=== PATIENT | male | born 1960 | race Two or more races ===

== ENCOUNTER 2018-10-24 22:29 | Inpatient (IN) | payer BC ==
[~2018-10-24] VITALS: Ht 177.8 cm; Wt 76.7 kg
[2018-10-24 23:01] LABS: BASO % 0 % (0-3); EOS % 0 % (0-3); HEMATOCRIT 44.3 % (39.0-53.0); HEMOGLOBIN 14.9 g/dL (13.0-17.5); LYMPH # 0.8 x10^3/uL (1.0-4.8); LYMPH % 8 % (24-48); MEAN CORPUSCULAR HEMOGLOBIN 31 pg (25-35); MEAN CORPUSCULAR HGB CONC 34 g/dL (31-37); MEAN CORPUSCULAR VOLUME 91 fL (79-100); MONO # 0.8 x10^3/uL (0.0-1.1); MONO % 8 % (0-9); NEUT # 8.5 x10^3uL (1.8-7.7); NEUT % 84 % (31-73); PLATELET COUNT 231 x10^3/uL (140-400); RED BLOOD COUNT 4.87 x10^6/uL (4.30-5.70); RED CELL DISTRIBUTION WIDTH 13.1 % (11.5-14.5); WHITE BLOOD COUNT 10.2 x10^3/uL (4.0-11.0)
--- NOTE | 2018-10-24 23:03 | PHYS DOC ---
Past Medical History Past Medical History: Diabetes-Type II Adult General Chief Complaint Chief Complaint: HEMORRHOIDS HPI HPI Patient is a 57 year old male with history of diabetes type 2 who presents to the ED today complaining of hemorrhoids. Patient states he noted the hemorrhoids on Friday which is 4 days ago. He states he was seen on Friday by the PCP at a local clinic, he states he was started on Preparation H and docusate. He states he is still experiencing pain to his rectal region. He is rating the pain as moderate worse when he sitting on his buttocks. He is denying any history of constipation. Denies any abdominal pain right now in the ED though he states at home he usually gets this abdominal pain to bilateral upper abdomen that come and go. Denies any Nausea/vomiting. 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 Denies abdominal pain, nausea, vomiting, bloody stools or diarrhea [] : Denies dysuria or hematuria [] Musculoskeletal: Denies back pain or joint pain [] Integument: Denies rash or skin lesions [] Neurologic: Denies headache, focal weakness or sensory changes [] All other systems were reviewed and found to be within normal limits, except as documented in this note. Current Medications Current Medications Current Medications Medications (Trade) Dose Ordered Sig/Do Start Time Stop Time Status Last Admin Dose Admin Dextrose (Dextrose 50%-Water Syringe) 12.5 gm PRN Q15MIN PRN 10/25/18 00:30 Famotidine (Pepcid Vial) 20 mg 1X ONCE 10/24/18 23:30 10/24/18 23:31 DC 10/24/18 23:51 20 MG Info (CONTRAST GIVEN -- Rx MONITORING) 1 each PRN DAILY PRN 10/24/18 23:30 10/26/18 23:29 Insulin Human Regular (HumuLIN R VIAL) 6 unit 1X ONCE 10/24/18 23:45 10/24/18 23:46 DC 10/25/18 00:05 6 UNIT Iohexol (Omnipaque 300 Mg/ml) 75 ml 1X ONCE 10/24/18 23:45 10/24/18 23:46 DC 10/24/18 23:36 75 ML Ketorolac Tromethamine (Toradol 30mg Vial) 30 mg 1X ONCE 10/24/18 23:30 10/24/18 23:31 DC 10/24/18 23:51 30 MG Lidocaine HCl (Xylocaine 2% Topical 5gm Tube) 1 [place] 1X ONCE 10/24/18 23:30 10/24/18 23:31 DC 10/24/18 23:50 1 [place] Morphine Sulfate (Morphine Sulfate) 4 mg PRN Q2HR PRN 10/25/18 00:30 10/26/18 00:29 Ondansetron HCl (Zofran) 4 mg PRN Q8HRS PRN 10/25/18 00:30 10/26/18 00:29 Sodium Chloride 1,000 ml @ 1,000 mls/hr 1X ONCE 10/24/18 23:45 10/25/18 00:44 DC 10/25/18 00:56 1,000 MLS/HR Allergies Allergies Allergies Coded Allergies Type Severity Reaction Last Updated Verified No Known Drug Allergies 10/24/18 No Physical Exam Physical Exam Constitutional: Well developed, well nourished, no acute distress, non-toxic appearance. [] HENT: Normocephalic, atraumatic, bilateral external ears normal, oropharynx moist, no oral exudates, nose normal. [] Eyes: PERRLA, EOMI, conjunctiva normal, no discharge. [] Neck: Normal range of motion, no tenderness, supple, no stridor. [] Cardiovascular:Heart rate regular rhythm, no murmur [] Lungs & Thorax: Bilateral breath sounds clear to auscultation [] Abdomen: Bowel sounds normal, soft, no tenderness, no masses, no pulsatile masses. [] Rectal exam-external rectum with small amount of nonthrombosed hemorrhoids. No Internal hemorrhoids noted,no internal masses. No stool noted on the lower rectal region hence no Hemoccult done. Skin: Patient appears jaundiced. Warm, dry, no erythema, no rash. [] Back: No tenderness, no CVA tenderness. [] Extremities: No tenderness, no cyanosis, no clubbing, ROM intact, no edema. [] Neurologic: Alert and oriented X 3, normal motor function, normal sensory functi on, no focal deficits noted. [] Psychologic: Affect normal, judgement normal, mood normal. [] Current Patient Data Vital Signs Vital Signs Date Time Temp Pulse Resp B/P (MAP) Pulse Ox O2 Delivery O2 Flow Rate FiO2 10/24/18 22:35 99.1 100 16 164/82 (109) 98 Room Air 99.1 Lab Values Laboratory Tests Test 10/24/18 22:50 10/25/18 00:20 White Blood Count 10.2 x10^3/uL (4.0-11.0) Red Blood Count 4.87 x10^6/uL (4.30-5.70) Hemoglobin 14.9 g/dL (13.0-17.5) Hematocrit 44.3 % (39.0-53.0) Mean Corpuscular Volume 91 fL (79-100) Mean Corpuscular Hemoglobin 31 pg (25-35) Mean Corpuscular Hemoglobin Concent 34 g/dL (31-37) Red Cell Distribution Width 13.1 % (11.5-14.5) Platelet Count 231 x10^3/uL (140-400) Neutrophils (%) (Auto) 84 % (31-73) H Lymphocytes (%) (Auto) 8 % (24-48) L Monocytes (%) (Auto) 8 % (0-9) Eosinophils (%) (Auto) 0 % (0-3) Basophils (%) (Auto) 0 % (0-3) Neutrophils # (Auto) 8.5 x10^3uL (1.8-7.7) H Lymphocytes # (Auto) 0.8 x10^3/uL (1.0-4.8) L Monocytes # (Auto) 0.8 x10^3/uL (0.0-1.1) Eosinophils # (Auto) 0.0 x10^3/uL (0.0-0.7) Basophils # (Auto) 0.0 x10^3/uL (0.0-0.2) Sodium Level 128 mmol/L (136-145) L Potassium Level 4.2 mmol/L (3.5-5.1) Chloride Level 92 mmol/L (98-107) L Carbon Dioxide Level 24 mmol/L (21-32) Anion Gap 12 (6-14) Blood Urea Nitrogen 18 mg/dL (8-26) Creatinine 0.7 mg/dL (0.7-1.3) Estimated GFR (Cockcroft-Gault) 115.8 BUN/Creatinine Ratio 26 (6-20) H Glucose Level 308 mg/dL (70-99) H Calcium Level 9.2 mg/dL (8.5-10.1) Total Bilirubin 1.6 mg/dL (0.2-1.0) H Aspartate Amino Transferase (AST) 34 U/L (15-37) Alanine Aminotransferase (ALT) 46 U/L (16-63) Alkaline Phosphatase 167 U/L (46-116) H Total Protein 7.8 g/dL (6.4-8.2) Albumin 3.3 g/dL (3.4-5.0) L Albumin/Globulin Ratio 0.7 (1.0-1.7) L Lipase 114 U/L (73-393) Urine Collection Type U cath Urine Color Yellow Urine Clarity Clear Urine pH 6.0 Urine Specific [place] >=1.030 Urine Protein Negative mg/dL (NEG-TRACE) Urine Glucose (UA) >=1000 mg/dL (NEG) Urine Ketones (Stick) 15 mg/dL (NEG) Urine Blood Negative (NEG) Urine Nitrite Negative (NEG) Urine Bilirubin Negative (NEG) Urine Urobilinogen Dipstick 1.0 mg/dL (0.2 mg/dL) Urine Leukocyte Esterase Negative (NEG) Urine RBC Occ /HPF (0-2) Urine WBC Occ /HPF (0-4) Urine Squamous Epithelial Cells Occ /LPF Urine Transitional Epithelial Cells Occ /LPF Urine Bacteria 0 /HPF (0-FEW) Urine Mucus Slight /LPF Laboratory Tests 10/24/18 22:50 Laboratory Tests 10/24/18 22:50 EKG EKG [] Radiology/Procedures Radiology/Procedures []PROCEDURE: CT ABD PELV W/ IV CONTRST ONLY CT ABD PELV W/ IV CONTRST ONLY Indication: Hemorrhoids. Exposure: One or more of the following individualized dose reduction techniques were utilized for this examination: 1. Automated exposure control 2. Adjustment of the mA and/or kV according to patient size 3. Use of iterative reconstruction technique. Technique: Intravenous contrast was given. No oral contrast per request. Lung bases are clear. Liver and spleen are unremarkable. Pancreas is difficult to delineate from adjacent unopacified bowel. But no definite peripancreatic fluid or inflammatory type changes seen. No adrenal mass. Kidneys demonstrate symmetric enhancement without hydronephrosis. There is a subcentimeter low-density lesion at the lower pole of the right kidney, too small to characterize but would most likely be a cyst. There is a gallstone in the gallbladder neck. The gallbladder is mildly distended. The aorta is mildly calcified and ectatic. No evidence of aneurysm. No significant lymph node enlargement. There are some mildly distended loops of small bowel fluid. No evidence of obstructive bowel gas pattern however. There is wall thickening of the rectum with some adjacent inflammatory type changes. Rectal wall is difficult to define. [id number] retained stool in the colon. No definite acute colitis. The appendix is not clearly seen. No significant urinary bladder wall thickening. There is no evidence of pneumoperitoneum or ascites. Degenerative changes of the spine with stenosis. No evidence of destructive bone lesion. IMPRESSION: 1. Rectal wall thickening with ill-defined margins and surrounding stranding, possibilities include proctitis, infected hemorrhoids or rectal mass. 2. Cholelithiasis with gallbladder distention. Electronically signed by: Albert Villarreal MD (10/25/2018 12:00 AM) [facility] DICTATED and SIGNED BY: ALBERT VILLARREAL MD DATE: 10/25/18 0000 Course & Med Decision Making Course & Med Decision Making Pertinent Labs and Imaging studies reviewed. (See chart for details) This is a 57-year-old male patient who presents to the ED today with hemorrhoids. Patient was seen by the PCP on Friday, started on Preparation H and docusate, symptoms persist. Physical exam small amount of external nonthrombosed hemorrhoids noted. CBC with a normal WBC, CMP with sodium of 128, glucose 308, normal anion gap, bilirubin 1.8-patient appears jaundiced. ALK 167. Vitals on arrival to the ED temperature 98.1 heart rate 100 respirations 16 blood pressure 164/82 O2 sats 98% on room air. CT of the abdomen and pelvic-was noted for rectal wall thickening with ill- defined margins and surrounding stranding, possibilities include proctitis, infected hemorrhoids or rectal mass. Cholelithiasis with gallbladder distention. 00:[address] Sanchez who will follow-up with patient in a.m. Consulted with -who accepted patient for admission Blood cultures were obtained, patient was given 2 L of normal saline in the ED and admitted with normal saline. Started on Cipro and Flagyl. Dragon Disclaimer Dragon Disclaimer This electronic medical record was generated, in whole or in part, using a voice recognition dictation system. Departure Departure Impression: Primary Impression: Hyperglycemia Additional Impressions: Hemorrhoids Cholelithiasis Hyponatremia Jaundice Disposition: ADMITTED INPATIENT Condition: STABLE Problem Qualifiers Additional Impressions: Hemorrhoids Hemorrhoid type: unspecified Qualified Codes: K64.9 - Unspecified hemorrhoids Cholelithiasis Cholelithiasis location: gallbladder Cholecystitis presence: without cholecystitis Biliary obstruction: without biliary obstruction Qualified Codes: K80.20 - Calculus of gallbladder without cholecystitis without obstruction FELICE DUMONT [employer] October 24, 2018 23:03
[2018-10-24 23:08] LABS: CALCIUM 9.2 mg/dL (8.5-10.1); CREATININE 0.7 mg/dL (0.7-1.3); GFR 115.8; POTASSIUM 4.2 mmol/L (3.5-5.1)
[2018-10-24 23:14] LABS: ALBUMIN 3.3 g/dL (3.4-5.0); ALBUMIN/GLOBULIN RATIO 0.7 (1.0-1.7); TOTAL BILIRUBIN 1.6 mg/dL (0.2-1.0); TOTAL PROTEIN 7.8 g/dL (6.4-8.2)
[2018-10-24] MEDS ORDERED: LIDOCAINE 2% TOPICAL JELLY 5GM TUBE. TP ONE (23:30)
[2018-10-24] MEDS ORDERED: KETOROLAC 30 MG/ML VIAL. IV ONE (23:30)
[2018-10-24] MEDS ORDERED: CONTRAST GIVEN. MC PRN (23:30)
[2018-10-24] MEDS ORDERED: FAMOTIDINE 20 MG/2 ML VIAL IVP ONE (23:30)
[2018-10-24] MEDS ORDERED: IV NORMAL SALINE 1000ML BAG 1,000 ML IV ONE ×2 (23:30→23:45)
[2018-10-24] MEDS ORDERED: IOHEXOL 300 MG/ML 100ML VIAL. IV ONE (23:45)
[2018-10-24] MEDS ORDERED: INSULIN REGULAR 100 UNIT/ML 3ML VIAL. IV ONE (23:45)
--- NOTE | 2018-10-25 00:03 | RAD ---
CT ABD PELV W/ IV CONTRST ONLY Indication: Hemorrhoids. Exposure: One or more of the following individualized dose reduction techniques were utilized for this examination: 1. Automated exposure control 2. Adjustment of the mA and/or kV according to patient size 3. Use of iterative reconstruction technique. Technique: Intravenous contrast was given. No oral contrast per request. Lung bases are clear. Liver and spleen are unremarkable. Pancreas is difficult to delineate from adjacent unopacified bowel. But no definite peripancreatic fluid or inflammatory type changes seen. No adrenal mass. Kidneys demonstrate symmetric enhancement without hydronephrosis. There is a subcentimeter low-density lesion at the lower pole of the right kidney, too small to characterize but would most likely be a cyst. There is a gallstone in the gallbladder neck. The gallbladder is mildly distended. The aorta is mildly calcified and ectatic. No evidence of aneurysm. No significant lymph node enlargement. There are some mildly distended loops of small bowel fluid. No evidence of obstructive bowel gas pattern however. There is wall thickening of the rectum with some adjacent inflammatory type changes. Rectal wall is difficult to define. [id number] retained stool in the colon. No definite acute colitis. The appendix is not clearly seen. No significant urinary bladder wall thickening. There is no evidence of pneumoperitoneum or ascites. Degenerative changes of the spine with stenosis. No evidence of destructive bone lesion. IMPRESSION: 1. Rectal wall thickening with ill-defined margins and surrounding stranding, possibilities include proctitis, infected hemorrhoids or rectal mass. 2. Cholelithiasis with gallbladder distention. Electronically signed by: Albert Villarreal MD (10/25/2018 12:00 AM) [facility]
[2018-10-25] MEDS ORDERED: ONDANSETRON PF 4 MG/2 ML VIAL. IV PRN ×2 (00:30→10:00)
[2018-10-25] MEDS ORDERED: DEXTROSE 50% 25 GM / 50ML DISP.SYRIN. IV PRN ×2 (00:30→10:00)
[2018-10-25 00:31] LABS: BILIRUBIN,URINE NEGATIVE (NEG); CLARITY,URINE CLEAR; COLOR,URINE YELLOW; NITRITE,URINE NEGATIVE (NEG); PROTEIN,URINE NEGATIVE (NEG-TRACE)
[2018-10-25 00:50] LABS: BACTERIA,URINE 0 /HPF (0-FEW); RBC,URINE OCC /HPF (0-2); WBC,URINE OCC /HPF (0-4)
[2018-10-25 00:51] LABS: SQUAMOUS EPITHELIAL CELL,UR OCC /LPF
[2018-10-25] MEDS ORDERED: IV NORMAL SALINE 1000ML BAG 1,000 ML IV ONE (01:00)
--- NOTE | 2018-10-25 02:00 | NUR ---
The patient, KATIE ERWIN, 57 y/o, M admitted by KENNETH CERVANTES MD, was given written information regarding hospital policies, unit procedures and contact persons. Valuables were checked and left in the room.
[2018-10-25] MEDS: CIPROFLOXACIN 400MG PREMIX 200 ML IV SCH ×3 (02:02→22:07)
[2018-10-25 02:21] VITALS: BP 115/69
[2018-10-25] MEDS: MORPHINE SULFATE 4 MG/ML VIAL. IV PRN ×4 (06:15→15:24)
[2018-10-25 07:00] VITALS: BP 123/72
[2018-10-25] MEDS ORDERED: INSULIN LISPRO 300 UNITS/3 ML INSULN.PEN. SQ SCH (08:00)
[2018-10-25] MEDS ORDERED: TRAM50TA PO (08:22)
[2018-10-25] MEDS ORDERED: HYDR25SU18 RC (08:22)
[2018-10-25] MEDS ORDERED: AMOX1TAB61 PO (08:22)
[2018-10-25] MEDS ORDERED: LIDO30CR6 TOP (08:22)
[2018-10-25] MEDS ORDERED: METF500T16 PO (08:22)
[2018-10-25] MEDS ORDERED: pericolace PO (08:22)
--- NOTE | 2018-10-25 09:14 | PDOC2 ---
CONSULT Date of Consult Date of Consult DATE: 10/25/18 TIME: 09:09 Reason for Consult Reason for Consult: Rectal pain Referring Physician Referring Physician: Salas Identification/Chief Complaint Chief Complaint Rectal pain due to hemorrhoids Source Source: Patient History of Present Illness Reason for Visit: Patient is a 57-year-old male who 3 days ago began experiencing rectal pain he assumed it was from his hemorrhoids he's had previous episodes of rectal pain over the last couple of years never had any surgery for his hemorrhoids. Denies ever having had a colonoscopy denies any bleeding with these hemorrhoids. Denies any abdominal pain no nausea or vomiting. Patient states the pain is worse after bowel movement he has never noticed the hemorrhoids outside of the anus. Past Medical History Cardiovascular: No pertinent hx Pulmonary: No pertinent hx GI: No pertinent hx Heme/Onc: No pertinent hx Hepatobiliary: No pertinent hx Psych: No pertinent hx Rheumatologic: No pertinent hx Infectious disease: No pertinent hx ENT: No pertinent hx Renal/: No pertinent hx Endocrine: Diabetes Dermatology: No pertinent hx Past Surgical History Past Surgical History: No pertinent history Family History Family History: No Significant Social History No ALCOHOL: rare Drugs: None Lives: with Family Current Problem List Problem List Problems Medical Problems: (1) Cholelithiasis Status: Acute (2) Jaundice Status: Acute Current Medications Current Medications Current Medications Lidocaine HCl (Xylocaine 2% Topical 5gm Tube) 1 kady 1X ONCE TP Last administered on 10/24/18at 23:50; Start 10/24/18 at 23:30; Stop 10/24/18 at 23:31; Status DC Sodium Chloride 1,000 ml @ 1,000 mls/hr 1X ONCE IV Last administered on 10/24/18at 23:54; Start 10/24/18 at 23:30; Stop 10/25/18 at 00:29; Status DC Ketorolac Tromethamine (Toradol 30mg Vial) 30 mg 1X ONCE IV Last administered on 10/24/18at 23:51; Start 10/24/18 at 23:30; Stop 10/24/18 at 23:31; Status DC Famotidine (Pepcid Vial) 20 mg 1X ONCE IVP Last administered on 10/24/18at 23:51; Start 10/24/18 at 23:30; Stop 10/24/18 at 23:31; Status DC Iohexol (Omnipaque 300 Mg/ml) 75 ml 1X ONCE IV Last administered on 10/24/18at 23:36; Start 10/24/18 at 23:45; Stop 10/24/18 at 23:46; Status DC Info (CONTRAST GIVEN -- Rx MONITORING) 1 each PRN DAILY PRN MC SEE COMMENTS; Start 10/24/18 at 23:30; Stop 10/26/18 at 23:29 Sodium Chloride 1,000 ml @ 1,000 mls/hr 1X ONCE IV Last administered on 10/25/18at 00:56; Start 10/24/18 at 23:45; Stop 10/25/18 at 00:44; Status DC Insulin Human Regular (HumuLIN R VIAL) 6 unit 1X ONCE IV Last administered on 10/25/18at 00:05; Start 10/24/18 at 23:45; Stop 10/24/18 at 23:46; Status DC Ondansetron HCl (Zofran) 4 mg PRN Q8HRS PRN IV NAUSEA/VOMITING 1ST CHOICE; Start 10/25/18 at 00:30; Stop 10/26/18 at 00:29 Morphine Sulfate (Morphine Sulfate) 4 mg PRN Q2HR PRN IV SEVERE PAIN Last administered on 10/25/18at 08:24; Start 10/25/18 at 00:30; Stop 10/26/18 at 00:29 Insulin Human Lispro (HumaLOG) 0-5 UNITS TIDWMEALS SQ ; Start 10/25/18 at 08:00 Dextrose (Dextrose 50%-Water Syringe) 12.5 gm PRN Q15MIN PRN IV SEE COMMENTS; Start 10/25/18 at 00:30 Sodium Chloride 1,000 ml @ 125 mls/hr 1X ONCE IV Last administered on 10/25/18at 01:55; Start 10/25/18 at 01:00; Stop 10/25/18 at 08:59; Status DC Ciprofloxacin/ Dextrose 200 ml @ 200 mls/hr BID IV Last administered on 10/25/18at 02:02; Start 10/25/18 at 01:00 Metronidazole 100 ml @ 100 mls/hr Q8HRS IV Last administered on 10/25/18at 06:15; Start 10/25/18 at 06:00 Active Scripts Active Reported Anusol-Hc (Hydrocortisone Acetate) 25 Mg Supp.rect 1 Supp RC BID Augmentin 875-125 Tablet (Amoxicillin/Potassium Clav) 1 Each Tablet 1 Tab PO BID Metformin Hcl 500 Mg Tablet 500 Mg PO BIDWMEALS Tramadol Hcl 50 Mg Tablet 50 Mg PO PRN Q12HR PRN Recticare (Lidocaine) 30 Gm Cream..g. 1 Kady TOP QIDPRN PRN [pericolace] 2 Tab PO HS Allergies Allergies: Coded Allergies: No Known Drug Allergies (Unverified , 10/24/18) ROS Gastrointestinal: Yes Other (rectal pain) Physical Exam General: Alert, Oriented X3, Cooperative, mild distress HEENT: Atraumatic, PERRLA, EOMI Lungs: Clear to auscultation, Normal air movement Heart: Regular rate, No murmurs Abdomen: Normal bowel sounds, Soft, No tenderness, Other (external exam shows no protruding hemorrhoids no inflammation no erythema [place] taking of the mucosa just beyond the anal verge questionable mass) Extremities: No edema Skin: No significant lesion Vitals VITALS Vital Signs Date Time Temp Pulse Resp B/P (MAP) Pulse Ox O2 Delivery O2 Flow Rate FiO2 10/25/18 08:24 20 97 Room Air 10/25/18 07:00 99.1 80 123/72 (89) 99.1 Labs Labs Laboratory Tests Test 10/24/18 22:50 10/25/18 00:20 10/25/18 01:05 10/25/18 01:26 White Blood Count 10.2 x10^3/uL (4.0-11.0) Red Blood Count 4.87 x10^6/uL (4.30-5.70) Hemoglobin 14.9 g/dL (13.0-17.5) Hematocrit 44.3 % (39.0-53.0) Mean Corpuscular Volume 91 fL (79-100) Mean Corpuscular Hemoglobin 31 pg (25-35) Mean Corpuscular Hemoglobin Concent 34 g/dL (31-37) Red Cell Distribution Width 13.1 % (11.5-14.5) Platelet Count 231 x10^3/uL (140-400) Neutrophils (%) (Auto) 84 % (31-73) Lymphocytes (%) (Auto) 8 % (24-48) Monocytes (%) (Auto) 8 % (0-9) Eosinophils (%) (Auto) 0 % (0-3) Basophils (%) (Auto) 0 % (0-3) Neutrophils # (Auto) 8.5 x10^3uL (1.8-7.7) Lymphocytes # (Auto) 0.8 x10^3/uL (1.0-4.8) Monocytes # (Auto) 0.8 x10^3/uL (0.0-1.1) Eosinophils # (Auto) 0.0 x10^3/uL (0.0-0.7) Basophils # (Auto) 0.0 x10^3/uL (0.0-0.2) Sodium Level 128 mmol/L (136-145) Potassium Level 4.2 mmol/L (3.5-5.1) Chloride Level 92 mmol/L (98-107) Carbon Dioxide Level 24 mmol/L (21-32) Anion Gap 12 (6-14) Blood Urea Nitrogen 18 mg/dL (8-26) Creatinine 0.7 mg/dL (0.7-1.3) Estimated GFR (Cockcroft-Gault) 115.8 BUN/Creatinine Ratio 26 (6-20) Glucose Level 308 mg/dL (70-99) Calcium Level 9.2 mg/dL (8.5-10.1) Total Bilirubin 1.6 mg/dL (0.2-1.0) Aspartate Amino Transf (AST/SGOT) 34 U/L (15-37) Alanine Aminotransferase (ALT/SGPT) 46 U/L (16-63) Alkaline Phosphatase 167 U/L (46-116) Total Protein 7.8 g/dL (6.4-8.2) Albumin 3.3 g/dL (3.4-5.0) Albumin/Globulin Ratio 0.7 (1.0-1.7) Lipase 114 U/L (73-393) Urine Collection Type U cath Urine Color Yellow Urine Clarity Clear Urine pH 6.0 Urine Specific [place] >=1.030 Urine Protein Negative mg/dL (NEG-TRACE) Urine Glucose (UA) >=1000 mg/dL (NEG) Urine Ketones (Stick) 15 mg/dL (NEG) Urine Blood Negative (NEG) Urine Nitrite Negative (NEG) Urine Bilirubin Negative (NEG) Urine Urobilinogen Dipstick 1.0 mg/dL (0.2 mg/dL) Urine Leukocyte Esterase Negative (NEG) Urine RBC Occ /HPF (0-2) Urine WBC Occ /HPF (0-4) Urine Squamous Epithelial Cells Occ /LPF Urine Transitional Epithelial Cells Occ /LPF Urine Bacteria 0 /HPF (0-FEW) Urine Mucus Slight /LPF Lactic Acid Level 1.7 mmol/L (0.4-2.0) Glucose (Fingerstick) 212 mg/dL (70-99) Test 10/25/18 07:49 Glucose (Fingerstick) 205 mg/dL (70-99) Laboratory Tests Test 10/24/18 22:50 10/25/18 00:20 10/25/18 01:05 10/25/18 01:26 White Blood Count 10.2 x10^3/uL (4.0-11.0) Red Blood Count 4.87 x10^6/uL (4.30-5.70) Hemoglobin 14.9 g/dL (13.0-17.5) Hematocrit 44.3 % (39.0-53.0) Mean Corpuscular Volume 91 fL (79-100) Mean Corpuscular Hemoglobin 31 pg (25-35) Mean Corpuscular Hemoglobin Concent 34 g/dL (31-37) Red Cell Distribution Width 13.1 % (11.5-14.5) Platelet Count 231 x10^3/uL (140-400) Neutrophils (%) (Auto) 84 % (31-73) Lymphocytes (%) (Auto) 8 % (24-48) Monocytes (%) (Auto) 8 % (0-9) Eosinophils (%) (Auto) 0 % (0-3) Basophils (%) (Auto) 0 % (0-3) Neutrophils # (Auto) 8.5 x10^3uL (1.8-7.7) Lymphocytes # (Auto) 0.8 x10^3/uL (1.0-4.8) Monocytes # (Auto) 0.8 x10^3/uL (0.0-1.1) Eosinophils # (Auto) 0.0 x10^3/uL (0.0-0.7) Basophils # (Auto) 0.0 x10^3/uL (0.0-0.2) Sodium Level 128 mmol/L (136-145) Potassium Level 4.2 mmol/L (3.5-5.1) Chloride Level 92 mmol/L (98-107) Carbon Dioxide Level 24 mmol/L (21-32) Anion Gap 12 (6-14) Blood Urea Nitrogen 18 mg/dL (8-26) Creatinine 0.7 mg/dL (0.7-1.3) Estimated GFR (Cockcroft-Gault) 115.8 BUN/Creatinine Ratio 26 (6-20) Glucose Level 308 mg/dL (70-99) Calcium Level 9.2 mg/dL (8.5-10.1) Total Bilirubin 1.6 mg/dL (0.2-1.0) Aspartate Amino Transf (AST/SGOT) 34 U/L (15-37) Alanine Aminotransferase (ALT/SGPT) 46 U/L (16-63) Alkaline Phosphatase 167 U/L (46-116) Total Protein 7.8 g/dL (6.4-8.2) Albumin 3.3 g/dL (3.4-5.0) Albumin/Globulin Ratio 0.7 (1.0-1.7) Lipase 114 U/L (73-393) Urine Collection Type U cath Urine Color Yellow Urine Clarity Clear Urine pH 6.0 Urine Specific [place] >=1.030 Urine Protein Negative mg/dL (NEG-TRACE) Urine Glucose (UA) >=1000 mg/dL (NEG) Urine Ketones (Stick) 15 mg/dL (NEG) Urine Blood Negative (NEG) Urine Nitrite Negative (NEG) Urine Bilirubin Negative (NEG) Urine Urobilinogen Dipstick 1.0 mg/dL (0.2 mg/dL) Urine Leukocyte Esterase Negative (NEG) Urine RBC Occ /HPF (0-2) Urine WBC Occ /HPF (0-4) Urine Squamous Epithelial Cells Occ /LPF Urine Transitional Epithelial Cells Occ /LPF Urine Bacteria 0 /HPF (0-FEW) Urine Mucus Slight /LPF Lactic Acid Level 1.7 mmol/L (0.4-2.0) Glucose (Fingerstick) 212 mg/dL (70-99) Test 10/25/18 07:49 Glucose (Fingerstick) 205 mg/dL (70-99) Images Images Reviewed CT findings showing fat stranding and rectal wall thickening concerning for neoplasia versus proctitis also had a large gallstone within the gallbladder with no evidence of pericholecystic fluid or inflammation Assessment/Plan Assessment/Plan Rectal pain with abnormal CT scan findings recommend GI consult for colonoscopy Cholelithiasis asymptomatic but with patient's diabetes would recommend having cholecystectomy electively MIGDALIA VALDIVIA MD October 25, 2018 09:14
[2018-10-25] MEDS ORDERED: traMADol 50 MG TABLET PO PRN (10:00)
[2018-10-25] MEDS ORDERED: PHENYLEPHRINE SUPP.RECT. PR PRN (10:00)
[2018-10-25] MEDS: HYDROCORTISONE ACETATE 25 MG SUPP.RECT PR SCH ×2 (10:16→22:06)
[2018-10-25 11:00] VITALS: BP 151/81
--- NOTE | 2018-10-25 11:08 | PDOC2 ---
CONSULT Date of Consult Date of Consult DATE: 10/25/18 TIME: 10:59 Identification/Chief Complaint Chief Complaint Rectal pain, abnormal CT scan History of Present Illness Reason for Visit: This is a 57 year old gentleman who describes a greater than one-year history of intermittent rectal pain. He describes the pain as sharp and worse with bowel movements but not associated with bleeding. He denies any external hemorrhoids or external lesions appreciated and thinks this is in his rectum. He has been advised to have this evaluated but has not followed through until the present time. On admission his CT reveals thickening in the rectum that might be consistent with either large hemorrhoids, proctitis or even neoplasia. He has never had a colonoscopy. He also describes an isolated episode of lower chest and epigastric pain at few weeks ago that resolved spontaneously. He denies chronic dyspepsia or heartburn symptoms. He was recently diagnosed with diabetes and started on metformin within the last week but prior to that had not been aware of any chronic medical problems. Denies nausea, vomiting, heartburn, dysphagia, melena or hematochezia. Past Medical History Cardiovascular: No pertinent hx Pulmonary: No pertinent hx GI: No pertinent hx Heme/Onc: No pertinent hx Hepatobiliary: No pertinent hx Psych: No pertinent hx Rheumatologic: No pertinent hx Infectious disease: No pertinent hx ENT: No pertinent hx Renal/: No pertinent hx Endocrine: Diabetes Dermatology: No pertinent hx Past Surgical History Past Surgical History: No pertinent history Family History Family History: No Significant Social History No ALCOHOL: rare Drugs: None Lives: with Family Current Problem List Problem List Problems Medical Problems: (1) Cholelithiasis Status: Acute (2) Jaundice Status: Acute Current Medications Current Medications Current Medications Lidocaine HCl (Xylocaine 2% Topical 5gm Tube) 1 kady 1X ONCE TP Last administered on 10/24/18at 23:50; Start 10/24/18 at 23:30; Stop 10/24/18 at 23:31; Status DC Sodium Chloride 1,000 ml @ 1,000 mls/hr 1X ONCE IV Last administered on 10/24/18at 23:54; Start 10/24/18 at 23:30; Stop 10/25/18 at 00:29; Status DC Ketorolac Tromethamine (Toradol 30mg Vial) 30 mg 1X ONCE IV Last administered on 10/24/18at 23:51; Start 10/24/18 at 23:30; Stop 10/24/18 at 23:31; Status DC Famotidine (Pepcid Vial) 20 mg 1X ONCE IVP Last administered on 10/24/18at 23:51; Start 10/24/18 at 23:30; Stop 10/24/18 at 23:31; Status DC Iohexol (Omnipaque 300 Mg/ml) 75 ml 1X ONCE IV Last administered on 10/24/18at 23:36; Start 10/24/18 at 23:45; Stop 10/24/18 at 23:46; Status DC Info (CONTRAST GIVEN -- Rx MONITORING) 1 each PRN DAILY PRN MC SEE COMMENTS; Start 10/24/18 at 23:30; Stop 10/26/18 at 23:29 Sodium Chloride 1,000 ml @ 1,000 mls/hr 1X ONCE IV Last administered on 10/25/18at 00:56; Start 10/24/18 at 23:45; Stop 10/25/18 at 00:44; Status DC Insulin Human Regular (HumuLIN R VIAL) 6 unit 1X ONCE IV Last administered on 10/25/18at 00:05; Start 10/24/18 at 23:45; Stop 10/24/18 at 23:46; Status DC Ondansetron HCl (Zofran) 4 mg PRN Q8HRS PRN IV NAUSEA/VOMITING 1ST CHOICE; Start 10/25/18 at 00:30; Stop 10/25/18 at 09:54; Status DC Morphine Sulfate (Morphine Sulfate) 4 mg PRN Q2HR PRN IV SEVERE PAIN Last administered on 10/25/18at 08:24; Start 10/25/18 at 00:30; Stop 10/26/18 at 00:29 Insulin Human Lispro (HumaLOG) 0-5 UNITS TIDWMEALS SQ ; Start 10/25/18 at 08:00; Stop 10/25/18 at 09:54; Status DC Dextrose (Dextrose 50%-Water Syringe) 12.5 gm PRN Q15MIN PRN IV SEE COMMENTS; Start 10/25/18 at 00:30; Status Cancel Sodium Chloride 1,000 ml @ 125 mls/hr 1X ONCE IV Last administered on 10/25/18at 01:55; Start 10/25/18 at 01:00; Stop 10/25/18 at 08:59; Status DC Ciprofloxacin/ Dextrose 200 ml @ 200 mls/hr BID IV Last administered on 10/25/18at 10:16; Start 10/25/18 at 01:00 Metronidazole 100 ml @ 100 mls/hr Q8HRS IV Last administered on 10/25/18at 06:15; Start 10/25/18 at 06:00 Ondansetron HCl (Zofran) 4 mg PRN Q6HRS PRN IV NAUSEA/VOMITING 1ST CHOICE; Start 10/25/18 at 10:00 Acetaminophen (Tylenol) 500 mg PRN Q6HRS PRN PO MILD PAIN / TEMP; Start 10/25/18 at 10:00 Acetaminophen/ Codeine Phosphate (Tylenol #3) 1 tab PRN Q6HRS PRN PO MODERATE PAIN; Start 10/25/18 at 10:00 Phenylephrine HCl (Hemorrhoidal) 1 supp PRN Q12HR PRN [place] RECTAL PAIN; Start 10/25/18 at 10:00 Insulin Human Lispro (HumaLOG) 0-9 UNITS TIDWMEALS SQ ; Start 10/25/18 at 12:00 Dextrose (Dextrose 50%-Water Syringe) 12.5 gm PRN Q15MIN PRN IV SEE COMMENTS; Start 10/25/18 at 10:00 Tramadol HCl (Ultram) 50 mg PRN Q12HR PRN PO MODERATE PAIN, 1st CHOICE; Start 10/25/18 at 10:00 Hydrocortisone Acetate (Anucort-Hc) 25 mg BID CA Last administered on 10/25/18at 10:16; Start 10/25/18 at 10:30 Lidocaine HCl (Xylocaine 2% Topical 30gm Tube) 1 kady PRN QID PRN TP RECTAL PAIN; Start 10/25/18 at 10:30 Metformin HCl (Glucophage) 500 mg BIDWMEALS PO ; Start 10/27/18 at 08:00 Senna/Docusate Sodium (Senna Plus) 2 tab QHS PO ; Start 10/25/18 at 21:00 Ringer's Solution 1,000 ml @ 50 mls/hr Q20H IV ; Start 10/26/18 at 07:00; Stop 10/26/18 at 18:59 Active Scripts Active Reported Anusol-Hc (Hydrocortisone Acetate) 25 Mg Supp.rect 1 Supp RC BID Augmentin 875-125 Tablet (Amoxicillin/Potassium Clav) 1 Each Tablet 1 Tab PO BID Metformin Hcl 500 Mg Tablet 500 Mg PO BIDWMEALS Tramadol Hcl 50 Mg Tablet 50 Mg PO PRN Q12HR PRN Recticare (Lidocaine) 30 Gm Cream..g. 1 Kady TOP QIDPRN PRN [pericolace] 2 Tab PO HS Allergies Allergies: Coded Allergies: No Known Drug Allergies (Unverified , 10/24/18) Physical Exam General: Alert, Oriented X3, Cooperative HEENT: PERRLA Lungs: Clear to auscultation Heart: Regular rate, Normal S1, Normal S2 Abdomen: Normal bowel sounds, Soft, No tenderness, No hepatosplenomegaly, No masses Extremities: No clubbing, No cyanosis Skin: No rashes Neuro: Normal speech, Strength at 5/5 X4 ext Psych/Mental Status: Mental status NL Vitals VITALS Vital Signs Date Time Temp Pulse Resp B/P (MAP) Pulse Ox O2 Delivery O2 Flow Rate FiO2 10/25/18 08:54 97 Room Air 10/25/18 08:24 20 10/25/18 07:00 99.1 80 123/72 (89) 99.1 Labs Labs Laboratory Tests Test 10/24/18 22:50 10/25/18 00:20 10/25/18 01:05 10/25/18 01:26 White Blood Count 10.2 x10^3/uL (4.0-11.0) Red Blood Count 4.87 x10^6/uL (4.30-5.70) Hemoglobin 14.9 g/dL (13.0-17.5) Hematocrit 44.3 % (39.0-53.0) Mean Corpuscular Volume 91 fL (79-100) Mean Corpuscular Hemoglobin 31 pg (25-35) Mean Corpuscular Hemoglobin Concent 34 g/dL (31-37) Red Cell Distribution Width 13.1 % (11.5-14.5) Platelet Count 231 x10^3/uL (140-400) Neutrophils (%) (Auto) 84 % (31-73) Lymphocytes (%) (Auto) 8 % (24-48) Monocytes (%) (Auto) 8 % (0-9) Eosinophils (%) (Auto) 0 % (0-3) Basophils (%) (Auto) 0 % (0-3) Neutrophils # (Auto) 8.5 x10^3uL (1.8-7.7) Lymphocytes # (Auto) 0.8 x10^3/uL (1.0-4.8) Monocytes # (Auto) 0.8 x10^3/uL (0.0-1.1) Eosinophils # (Auto) 0.0 x10^3/uL (0.0-0.7) Basophils # (Auto) 0.0 x10^3/uL (0.0-0.2) Sodium Level 128 mmol/L (136-145) Potassium Level 4.2 mmol/L (3.5-5.1) Chloride Level 92 mmol/L (98-107) Carbon Dioxide Level 24 mmol/L (21-32) Anion Gap 12 (6-14) Blood Urea Nitrogen 18 mg/dL (8-26) Creatinine 0.7 mg/dL (0.7-1.3) Estimated GFR (Cockcroft-Gault) 115.8 BUN/Creatinine Ratio 26 (6-20) Glucose Level 308 mg/dL (70-99) Calcium Level 9.2 mg/dL (8.5-10.1) Total Bilirubin 1.6 mg/dL (0.2-1.0) Aspartate Amino Transf (AST/SGOT) 34 U/L (15-37) Alanine Aminotransferase (ALT/SGPT) 46 U/L (16-63) Alkaline Phosphatase 167 U/L (46-116) Total Protein 7.8 g/dL (6.4-8.2) Albumin 3.3 g/dL (3.4-5.0) Albumin/Globulin Ratio 0.7 (1.0-1.7) Lipase 114 U/L (73-393) Urine Collection Type U cath Urine Color Yellow Urine Clarity Clear Urine pH 6.0 Urine Specific [place] >=1.030 Urine Protein Negative mg/dL (NEG-TRACE) Urine Glucose (UA) >=1000 mg/dL (NEG) Urine Ketones (Stick) 15 mg/dL (NEG) Urine Blood Negative (NEG) Urine Nitrite Negative (NEG) Urine Bilirubin Negative (NEG) Urine Urobilinogen Dipstick 1.0 mg/dL (0.2 mg/dL) Urine Leukocyte Esterase Negative (NEG) Urine RBC Occ /HPF (0-2) Urine WBC Occ /HPF (0-4) Urine Squamous Epithelial Cells Occ /LPF Urine Transitional Epithelial Cells Occ /LPF Urine Bacteria 0 /HPF (0-FEW) Urine Mucus Slight /LPF Lactic Acid Level 1.7 mmol/L (0.4-2.0) Glucose (Fingerstick) 212 mg/dL (70-99) Test 10/25/18 07:49 Glucose (Fingerstick) 205 mg/dL (70-99) Laboratory Tests Test 10/24/18 22:50 10/25/18 00:20 10/25/18 01:05 10/25/18 01:26 White Blood Count 10.2 x10^3/uL (4.0-11.0) Red Blood Count 4.87 x10^6/uL (4.30-5.70) Hemoglobin 14.9 g/dL (13.0-17.5) Hematocrit 44.3 % (39.0-53.0) Mean Corpuscular Volume 91 fL (79-100) Mean Corpuscular Hemoglobin 31 pg (25-35) Mean Corpuscular Hemoglobin Concent 34 g/dL (31-37) Red Cell Distribution Width 13.1 % (11.5-14.5) Platelet Count 231 x10^3/uL (140-400) Neutrophils (%) (Auto) 84 % (31-73) Lymphocytes (%) (Auto) 8 % (24-48) Monocytes (%) (Auto) 8 % (0-9) Eosinophils (%) (Auto) 0 % (0-3) Basophils (%) (Auto) 0 % (0-3) Neutrophils # (Auto) 8.5 x10^3uL (1.8-7.7) Lymphocytes # (Auto) 0.8 x10^3/uL (1.0-4.8) Monocytes # (Auto) 0.8 x10^3/uL (0.0-1.1) Eosinophils # (Auto) 0.0 x10^3/uL (0.0-0.7) Basophils # (Auto) 0.0 x10^3/uL (0.0-0.2) Sodium Level 128 mmol/L (136-145) Potassium Level 4.2 mmol/L (3.5-5.1) Chloride Level 92 mmol/L (98-107) Carbon Dioxide Level 24 mmol/L (21-32) Anion Gap 12 (6-14) Blood Urea Nitrogen 18 mg/dL (8-26) Creatinine 0.7 mg/dL (0.7-1.3) Estimated GFR (Cockcroft-Gault) 115.8 BUN/Creatinine Ratio 26 (6-20) Glucose Level 308 mg/dL (70-99) Calcium Level 9.2 mg/dL (8.5-10.1) Total Bilirubin 1.6 mg/dL (0.2-1.0) Aspartate Amino Transf (AST/SGOT) 34 U/L (15-37) Alanine Aminotransferase (ALT/SGPT) 46 U/L (16-63) Alkaline Phosphatase 167 U/L (46-116) Total Protein 7.8 g/dL (6.4-8.2) Albumin 3.3 g/dL (3.4-5.0) Albumin/Globulin Ratio 0.7 (1.0-1.7) Lipase 114 U/L (73-393) Urine Collection Type U cath Urine Color Yellow Urine Clarity Clear Urine pH 6.0 Urine Specific [place] >=1.030 Urine Protein Negative mg/dL (NEG-TRACE) Urine Glucose (UA) >=1000 mg/dL (NEG) Urine Ketones (Stick) 15 mg/dL (NEG) Urine Blood Negative (NEG) Urine Nitrite Negative (NEG) Urine Bilirubin Negative (NEG) Urine Urobilinogen Dipstick 1.0 mg/dL (0.2 mg/dL) Urine Leukocyte Esterase Negative (NEG) Urine RBC Occ /HPF (0-2) Urine WBC Occ /HPF (0-4) Urine Squamous Epithelial Cells Occ /LPF Urine Transitional Epithelial Cells Occ /LPF Urine Bacteria 0 /HPF (0-FEW) Urine Mucus Slight /LPF Lactic Acid Level 1.7 mmol/L (0.4-2.0) Glucose (Fingerstick) 212 mg/dL (70-99) Test 10/25/18 07:49 Glucose (Fingerstick) 205 mg/dL (70-99) Images Images CT IMPRESSION: 1. Rectal wall thickening with ill-defined margins and surrounding stranding, possibilities include proctitis, infected hemorrhoids or rectal mass. 2. Cholelithiasis with gallbladder distention. Assessment/Plan Assessment/Plan Rectal pain with abnormal CT suggesting inflammation. The chronic nature of his symptoms speaks against infection but could represent occult neoplasia, proctitis or large hemorrhoids. Since he has not had previous colonoscopy it would be appropriate to proceed with this evaluation prior to treatment recommendations. Cholelithiasis. He has no symptoms of cholecystitis presently although he did have an isolated episode of epigastric pain a few weeks ago. He has diabetic with a new diagnosis and eventually should have his gallbladder removed electively. New diagnosis of diabetes. Plan: Proceed with bowel prep and colonoscopy in the morning Monitor labs and clinical progress MINESH JUAREZ MD October 25, 2018 11:08
[2018-10-25] MEDS ORDERED: BISACODYL 5 MG TABLET.DR. PO ONE (11:15)
[2018-10-25] MEDS: INSULIN LISPRO 300 UNITS/3 ML INSULN.PEN. SQ SCH ×2 (11:54→17:13)
--- NOTE | 2018-10-25 11:56 | PDOC1 ---
History and Physical Date of Admission Date of Admission DATE: 10/25/18 TIME: 11:52 Identification/Chief Complaint Chief Complaint rectal pain Source Source: Caregiver, Chart review, Patient History of Present Illness History of Present Illness 57-year-old male, daughter translates for me, rectal pain and palpable rectal hemorrhoids in that area for quite some time now. Previously constipated, now diarrhea. GS was consulted. GS recommends GI maybe a colonoscopy and that is the plan right now. Colonoscopy 8 AM Friday. Patient is having a bowel prep. NO known cardiac or pulmo hx but DM and rather poor/fair control. Patient is a diabetic with high blood sugars but unknown A1c. Never on insulin just on OHA. Some hyponatremia 128, never smoker, ketonuria but no glucosuria. Admitted for rectal pain, colonoscopy, and hyperglycemia, uncontrolled Past Medical History Cardiovascular: No pertinent hx Pulmonary: No pertinent hx GI: No pertinent hx Heme/Onc: No pertinent hx Hepatobiliary: No pertinent hx Psych: No pertinent hx Rheumatologic: No pertinent hx Infectious disease: No pertinent hx ENT: No pertinent hx Renal/: No pertinent hx Endocrine: Diabetes Dermatology: No pertinent hx Past Surgical History Past Surgical History: No pertinent history Family History Family History: No Significant Social History Smoke: No ALCOHOL: rare Drugs: None Current Problem List Problem List Problems Medical Problems: (1) Cholelithiasis Status: Acute (2) Jaundice Status: Acute Current Medications Current Medications Current Medications Lidocaine HCl (Xylocaine 2% Topical 5gm Tube) 1 kady 1X ONCE TP Last administered on 10/24/18at 23:50; Start 10/24/18 at 23:30; Stop 10/24/18 at 23:31; Status DC Sodium Chloride 1,000 ml @ 1,000 mls/hr 1X ONCE IV Last administered on 10/24/18at 23:54; Start 10/24/18 at 23:30; Stop 10/25/18 at 00:29; Status DC Ketorolac Tromethamine (Toradol 30mg Vial) 30 mg 1X ONCE IV Last administered on 10/24/18at 23:51; Start 10/24/18 at 23:30; Stop 10/24/18 at 23:31; Status DC Famotidine (Pepcid Vial) 20 mg 1X ONCE IVP Last administered on 10/24/18at 23:51; Start 10/24/18 at 23:30; Stop 10/24/18 at 23:31; Status DC Iohexol (Omnipaque 300 Mg/ml) 75 ml 1X ONCE IV Last administered on 10/24/18at 23:36; Start 10/24/18 at 23:45; Stop 10/24/18 at 23:46; Status DC Info (CONTRAST GIVEN -- Rx MONITORING) 1 each PRN DAILY PRN MC SEE COMMENTS; Start 10/24/18 at 23:30; Stop 10/26/18 at 23:29 Sodium Chloride 1,000 ml @ 1,000 mls/hr 1X ONCE IV Last administered on 10/25/18at 00:56; Start 10/24/18 at 23:45; Stop 10/25/18 at 00:44; Status DC Insulin Human Regular (HumuLIN R VIAL) 6 unit 1X ONCE IV Last administered on 10/25/18at 00:05; Start 10/24/18 at 23:45; Stop 10/24/18 at 23:46; Status DC Ondansetron HCl (Zofran) 4 mg PRN Q8HRS PRN IV NAUSEA/VOMITING 1ST CHOICE; Start 10/25/18 at 00:30; Stop 10/25/18 at 09:54; Status DC Morphine Sulfate (Morphine Sulfate) 4 mg PRN Q2HR PRN IV SEVERE PAIN Last administered on 10/25/18at 11:45; Start 10/25/18 at 00:30; Stop 10/26/18 at 00:29 Insulin Human Lispro (HumaLOG) 0-5 UNITS TIDWMEALS SQ ; Start 10/25/18 at 08:00; Stop 10/25/18 at 09:54; Status DC Dextrose (Dextrose 50%-Water Syringe) 12.5 gm PRN Q15MIN PRN IV SEE COMMENTS; Start 10/25/18 at 00:30; Status Cancel Sodium Chloride 1,000 ml @ 125 mls/hr 1X ONCE IV Last administered on 10/25/18at 01:55; Start 10/25/18 at 01:00; Stop 10/25/18 at 08:59; Status DC Ciprofloxacin/ Dextrose 200 ml @ 200 mls/hr BID IV Last administered on 10/25/18at 10:16; Start 10/25/18 at 01:00 Metronidazole 100 ml @ 100 mls/hr Q8HRS IV Last administered on 10/25/18at 06:15; Start 10/25/18 at 06:00 Ondansetron HCl (Zofran) 4 mg PRN Q6HRS PRN IV NAUSEA/VOMITING 1ST CHOICE; Start 10/25/18 at 10:00 Acetaminophen (Tylenol) 500 mg PRN Q6HRS PRN PO MILD PAIN / TEMP; Start 10/25/18 at 10:00 Acetaminophen/ Codeine Phosphate (Tylenol #3) 1 tab PRN Q6HRS PRN PO MODERATE PAIN; Start 10/25/18 at 10:00 Phenylephrine HCl (Hemorrhoidal) 1 supp PRN Q12HR PRN [place] RECTAL PAIN; Start 10/25/18 at 10:00 Insulin Human Lispro (HumaLOG) 0-9 UNITS TIDWMEALS SQ ; Start 10/25/18 at 12:00 Dextrose (Dextrose 50%-Water Syringe) 12.5 gm PRN Q15MIN PRN IV SEE COMMENTS; Start 10/25/18 at 10:00 Tramadol HCl (Ultram) 50 mg PRN Q12HR PRN PO MODERATE PAIN, 1st CHOICE; Start 10/25/18 at 10:00 Hydrocortisone Acetate (Anucort-Hc) 25 mg BID NV Last administered on 10/25/18at 10:16; Start 10/25/18 at 10:30 Lidocaine HCl (Xylocaine 2% Topical 30gm Tube) 1 kady PRN QID PRN TP RECTAL PAIN; Start 10/25/18 at 10:30 Metformin HCl (Glucophage) 500 mg BIDWMEALS PO ; Start 10/27/18 at 08:00 Senna/Docusate Sodium (Senna Plus) 2 tab QHS PO ; Start 10/25/18 at 21:00 Ringer's Solution 1,000 ml @ 50 mls/hr Q20H IV ; Start 10/26/18 at 07:00; Stop 10/26/18 at 18:59 Polyethylene Glycol (miraLAX Powder BULK BOTTLE) 238 gm 1X ONCE PO ; Start 10/25/18 at 15:00; Stop 10/25/18 at 15:01 Bisacodyl (Dulcolax Tab) 10 mg 1X ONCE PO Last administered on 10/25/18at 11:45; Start 10/25/18 at 11:15; Stop 10/25/18 at 11:19; Status DC Magnesium Citrate (Citroma) 296 ml 1X ONCE PO ; Start 10/25/18 at 19:00; Stop 10/25/18 at 19:01 Active Scripts Active Reported Anusol-Hc (Hydrocortisone Acetate) 25 Mg Supp.rect 1 Supp RC BID Augmentin 875-125 Tablet (Amoxicillin/Potassium Clav) 1 Each Tablet 1 Tab PO BID Metformin Hcl 500 Mg Tablet 500 Mg PO BIDWMEALS Tramadol Hcl 50 Mg Tablet 50 Mg PO PRN Q12HR PRN Recticare (Lidocaine) 30 Gm Cream..g. 1 Kady TOP QIDPRN PRN [pericolace] 2 Tab PO HS Allergies Allergies: Coded Allergies: No Known Drug Allergies (Unverified , 10/24/18) ROS Review of System As per history of present illness, the rest of ROS 14 point negative Physical Exam General: Alert, Oriented X3, Cooperative, No acute distress HEENT: PERRLA Lungs: Clear to auscultation Heart: S1S2, RRR, no thrills, no rubs Cardiovascular: S1 Abdomen: Soft, No tenderness, No hepatosplenomegaly, No masses, Other (hyper active bowel sounds) Male Genitals Exam: normal genitalia, normal prostate Rectal Exam: other (hemorrhoids and rectal pain) Extremities: No clubbing, No cyanosis, No edema, Normal pulses, No tenderness/swelling Skin: No rashes, No breakdown, No significant lesion Neuro: Normal gait, Normal speech, Strength at 5/5 X4 ext, Normal tone, Sensation intact, Cranial nerves 3-12 NL, Reflexes 2+ Psych/Mental Status: Mental status NL, Mood NL Vitals Vitals Vital Signs Date Time Temp Pulse Resp B/P (MAP) Pulse Ox O2 Delivery O2 Flow Rate FiO2 10/25/18 11:45 20 97 Room Air 10/25/18 07:00 99.1 80 123/72 (89) 99.1 Labs Labs Laboratory Tests Test 10/24/18 22:50 10/25/18 00:20 10/25/18 01:05 10/25/18 01:26 White Blood Count 10.2 x10^3/uL (4.0-11.0) Red Blood Count 4.87 x10^6/uL (4.30-5.70) Hemoglobin 14.9 g/dL (13.0-17.5) Hematocrit 44.3 % (39.0-53.0) Mean Corpuscular Volume 91 fL (79-100) Mean Corpuscular Hemoglobin 31 pg (25-35) Mean Corpuscular Hemoglobin Concent 34 g/dL (31-37) Red Cell Distribution Width 13.1 % (11.5-14.5) Platelet Count 231 x10^3/uL (140-400) Neutrophils (%) (Auto) 84 % (31-73) Lymphocytes (%) (Auto) 8 % (24-48) Monocytes (%) (Auto) 8 % (0-9) Eosinophils (%) (Auto) 0 % (0-3) Basophils (%) (Auto) 0 % (0-3) Neutrophils # (Auto) 8.5 x10^3uL (1.8-7.7) Lymphocytes # (Auto) 0.8 x10^3/uL (1.0-4.8) Monocytes # (Auto) 0.8 x10^3/uL (0.0-1.1) Eosinophils # (Auto) 0.0 x10^3/uL (0.0-0.7) Basophils # (Auto) 0.0 x10^3/uL (0.0-0.2) Sodium Level 128 mmol/L (136-145) Potassium Level 4.2 mmol/L (3.5-5.1) Chloride Level 92 mmol/L (98-107) Carbon Dioxide Level 24 mmol/L (21-32) Anion Gap 12 (6-14) Blood Urea Nitrogen 18 mg/dL (8-26) Creatinine 0.7 mg/dL (0.7-1.3) Estimated GFR (Cockcroft-Gault) 115.8 BUN/Creatinine Ratio 26 (6-20) Glucose Level 308 mg/dL (70-99) Calcium Level 9.2 mg/dL (8.5-10.1) Total Bilirubin 1.6 mg/dL (0.2-1.0) Aspartate Amino Transf (AST/SGOT) 34 U/L (15-37) Alanine Aminotransferase (ALT/SGPT) 46 U/L (16-63) Alkaline Phosphatase 167 U/L (46-116) Total Protein 7.8 g/dL (6.4-8.2) Albumin 3.3 g/dL (3.4-5.0) Albumin/Globulin Ratio 0.7 (1.0-1.7) Lipase 114 U/L (73-393) Urine Collection Type U cath Urine Color Yellow Urine Clarity Clear Urine pH 6.0 Urine Specific [place] >=1.030 Urine Protein Negative mg/dL (NEG-TRACE) Urine Glucose (UA) >=1000 mg/dL (NEG) Urine Ketones (Stick) 15 mg/dL (NEG) Urine Blood Negative (NEG) Urine Nitrite Negative (NEG) Urine Bilirubin Negative (NEG) Urine Urobilinogen Dipstick 1.0 mg/dL (0.2 mg/dL) Urine Leukocyte Esterase Negative (NEG) Urine RBC Occ /HPF (0-2) Urine WBC Occ /HPF (0-4) Urine Squamous Epithelial Cells Occ /LPF Urine Transitional Epithelial Cells Occ /LPF Urine Bacteria 0 /HPF (0-FEW) Urine Mucus Slight /LPF Lactic Acid Level 1.7 mmol/L (0.4-2.0) Glucose (Fingerstick) 212 mg/dL (70-99) Test 10/25/18 07:49 10/25/18 11:20 Glucose (Fingerstick) 205 mg/dL (70-99) 224 mg/dL (70-99) Laboratory Tests Test 10/24/18 22:50 10/25/18 00:20 10/25/18 01:05 10/25/18 01:26 White Blood Count 10.2 x10^3/uL (4.0-11.0) Red Blood Count 4.87 x10^6/uL (4.30-5.70) Hemoglobin 14.9 g/dL (13.0-17.5) Hematocrit 44.3 % (39.0-53.0) Mean Corpuscular Volume 91 fL (79-100) Mean Corpuscular Hemoglobin 31 pg (25-35) Mean Corpuscular Hemoglobin Concent 34 g/dL (31-37) Red Cell Distribution Width 13.1 % (11.5-14.5) Platelet Count 231 x10^3/uL (140-400) Neutrophils (%) (Auto) 84 % (31-73) Lymphocytes (%) (Auto) 8 % (24-48) Monocytes (%) (Auto) 8 % (0-9) Eosinophils (%) (Auto) 0 % (0-3) Basophils (%) (Auto) 0 % (0-3) Neutrophils # (Auto) 8.5 x10^3uL (1.8-7.7) Lymphocytes # (Auto) 0.8 x10^3/uL (1.0-4.8) Monocytes # (Auto) 0.8 x10^3/uL (0.0-1.1) Eosinophils # (Auto) 0.0 x10^3/uL (0.0-0.7) Basophils # (Auto) 0.0 x10^3/uL (0.0-0.2) Sodium Level 128 mmol/L (136-145) Potassium Level 4.2 mmol/L (3.5-5.1) Chloride Level 92 mmol/L (98-107) Carbon Dioxide Level 24 mmol/L (21-32) Anion Gap 12 (6-14) Blood Urea Nitrogen 18 mg/dL (8-26) Creatinine 0.7 mg/dL (0.7-1.3) Estimated GFR (Cockcroft-Gault) 115.8 BUN/Creatinine Ratio 26 (6-20) Glucose Level 308 mg/dL (70-99) Calcium Level 9.2 mg/dL (8.5-10.1) Total Bilirubin 1.6 mg/dL (0.2-1.0) Aspartate Amino Transf (AST/SGOT) 34 U/L (15-37) Alanine Aminotransferase (ALT/SGPT) 46 U/L (16-63) Alkaline Phosphatase 167 U/L (46-116) Total Protein 7.8 g/dL (6.4-8.2) Albumin 3.3 g/dL (3.4-5.0) Albumin/Globulin Ratio 0.7 (1.0-1.7) Lipase 114 U/L (73-393) Urine Collection Type U cath Urine Color Yellow Urine Clarity Clear Urine pH 6.0 Urine Specific [place] >=1.030 Urine Protein Negative mg/dL (NEG-TRACE) Urine Glucose (UA) >=1000 mg/dL (NEG) Urine Ketones (Stick) 15 mg/dL (NEG) Urine Blood Negative (NEG) Urine Nitrite Negative (NEG) Urine Bilirubin Negative (NEG) Urine Urobilinogen Dipstick 1.0 mg/dL (0.2 mg/dL) Urine Leukocyte Esterase Negative (NEG) Urine RBC Occ /HPF (0-2) Urine WBC Occ /HPF (0-4) Urine Squamous Epithelial Cells Occ /LPF Urine Transitional Epithelial Cells Occ /LPF Urine Bacteria 0 /HPF (0-FEW) Urine Mucus Slight /LPF Lactic Acid Level 1.7 mmol/L (0.4-2.0) Glucose (Fingerstick) 212 mg/dL (70-99) Test 10/25/18 07:49 10/25/18 11:20 Glucose (Fingerstick) 205 mg/dL (70-99) 224 mg/dL (70-99) VTE Prophylaxis Ordered VTE Prophylaxis Devices: Yes VTE Pharmacological Prophylaxi: Yes Assessment/Plan Assessment/Plan REctal pain with hemorrhoids Hyponatremia could be pseudohyponatremia ? NIDDM to poorly controlled Hyperglycemia unknown A1c Ever smoker Ketonuria but no glucosuria Asymptomatic cholelithiasis Plan: bowel prep today Friday, nothing by mouth post midnight, C scope 8 AM Friday Sliding-scale insulin high-dose Check A1c Pending blood sugars here in the hospital if needs to be on some long-acting insulin once a day on discharge estevan mirza and RN at bedside KENNETH CERVANTES MD October 25, 2018 11:56
[2018-10-25] MEDS: ACETAMINOPHEN 500 MG TABLET PO PRN ×2 (13:14→20:41)
[2018-10-25] MEDS: LIDOCAINE 2% TOPICAL JELLY 30GM TUBE. TP PRN ×2 (13:15→19:28)
[2018-10-25] MEDS ORDERED: POLYETHYLENE GLYCOL 3350 BTL 238 GM POWDER PO ONE (15:00)
[2018-10-25 15:15] VITALS: BP 132/85
--- NOTE | 2018-10-25 18:52 | NUR ---
Miralax prep given as ordered,pt reports no bm as yet but has been passing gas.
[2018-10-25 19:00] VITALS: BP 138/86
[2018-10-25] MEDS ORDERED: MAGNESIUM CITRATE 296 ML SOLUTION. PO ONE (19:00)
[2018-10-25] MEDS ORDERED: MORPHINE SULFATE 4 MG/ML VIAL. IV PRN (19:30)
[2018-10-25] MEDS ORDERED: SENNOSIDES/DOCUSATE 8.6/50MG TABLET. PO SCH (21:00)
[2018-10-25 22:06] LABS: HEMOGLOBIN A1C 12.4 % (4.8-5.6)
[2018-10-25] MEDS: LACTOBACILLUS RHAMNOSUS GG 1 CAPSULE. PO SCH (22:06)
[2018-10-25 23:00] VITALS: BP 135/76
[2018-10-25] MEDS: ACETAMINOPHEN/CODEINE 300/30MG TABLET. PO PRN (23:53)
[2018-10-26 03:06] VITALS: BP 143/78
[2018-10-26 05:09] LABS: BASO % 0 % (0-3); EOS % 0 % (0-3); HEMATOCRIT 40.5 % (39.0-53.0); HEMOGLOBIN 13.4 g/dL (13.0-17.5); LYMPH % 10 % (24-48); MEAN CORPUSCULAR HEMOGLOBIN 30 pg (25-35); MEAN CORPUSCULAR HGB CONC 33 g/dL (31-37); MEAN CORPUSCULAR VOLUME 92 fL (79-100); MONO # 0.9 x10^3/uL (0.0-1.1); MONO % 9 % (0-9); NEUT # 7.8 x10^3uL (1.8-7.7); NEUT % 80 % (31-73); PLATELET COUNT 231 x10^3/uL (140-400); RED BLOOD COUNT 4.43 x10^6/uL (4.30-5.70); RED CELL DISTRIBUTION WIDTH 13.4 % (11.5-14.5); WHITE BLOOD COUNT 9.7 x10^3/uL (4.0-11.0)
[2018-10-26 05:44] LABS: ALBUMIN 2.6 g/dL (3.4-5.0); ALBUMIN/GLOBULIN RATIO 0.6 (1.0-1.7); CALCIUM 8.6 mg/dL (8.5-10.1); CREATININE 0.6 mg/dL (0.7-1.3); GFR 138.4; POTASSIUM 3.9 mmol/L (3.5-5.1); TOTAL BILIRUBIN 1.4 mg/dL (0.2-1.0); TOTAL PROTEIN 6.7 g/dL (6.4-8.2)
[2018-10-26] MEDS ORDERED: IV RINGERS,LACTATED 1000ML 1,000 ML IV SCH (07:00)
[2018-10-26] MEDS ORDERED: PROPOFOL 40 ML IV ONE (07:50)
[2018-10-26] MEDS ORDERED: LIDOCAINE 2% PF 5 ML VIAL. ONE (07:51)
--- NOTE | 2018-10-26 08:30 | PDOC4 ---
PROCEDURE Procedure Colonoscopy rectal pain and abnormal rectum on CT Anesthesia- propofol Findings- rectal exam- patient complained of discomfort but NO external lesions, abscess etc- only small hemorrhoid tag- no fissure noted- did have enlarged internal hemorrhoids and some localized inflammation but no ulcers, masses, polyps, pus etc. Rest of colon negative but limited due to poor bowel prep- no large masses seen. Plan- empiric antibiotics topical lidocaine avoid constipation repeat colonoscopy in 1 year since this exam limited MINESH JUAREZ MD October 26, 2018 08:30
--- NOTE | 2018-10-26 08:40 | PDOC ---
SURGICAL PROGRESS NOTE Subjective down for colonoscopy will fu on results Vital Signs Vital Signs Date Time Temp Pulse Resp B/P (MAP) Pulse Ox O2 Delivery O2 Flow Rate FiO2 10/26/18 08:24 99.2 84 18 102/64 100 Room Air 2 99.2 I&O Intake and Output 10/26/18 07:00 Intake Total 340 ml Output Total 0 ml Balance 340 ml Intake Oral 240 ml Other 100 ml Output Urine Total 0 ml Labs Laboratory Tests Test 10/24/18 22:50 10/25/18 00:20 10/25/18 01:05 10/25/18 01:26 White Blood Count 10.2 x10^3/uL (4.0-11.0) Red Blood Count 4.87 x10^6/uL (4.30-5.70) Hemoglobin 14.9 g/dL (13.0-17.5) Hematocrit 44.3 % (39.0-53.0) Mean Corpuscular Volume 91 fL (79-100) Mean Corpuscular Hemoglobin 31 pg (25-35) Mean Corpuscular Hemoglobin Concent 34 g/dL (31-37) Red Cell Distribution Width 13.1 % (11.5-14.5) Platelet Count 231 x10^3/uL (140-400) Neutrophils (%) (Auto) 84 % (31-73) Lymphocytes (%) (Auto) 8 % (24-48) Monocytes (%) (Auto) 8 % (0-9) Eosinophils (%) (Auto) 0 % (0-3) Basophils (%) (Auto) 0 % (0-3) Neutrophils # (Auto) 8.5 x10^3uL (1.8-7.7) Lymphocytes # (Auto) 0.8 x10^3/uL (1.0-4.8) Monocytes # (Auto) 0.8 x10^3/uL (0.0-1.1) Eosinophils # (Auto) 0.0 x10^3/uL (0.0-0.7) Basophils # (Auto) 0.0 x10^3/uL (0.0-0.2) Sodium Level 128 mmol/L (136-145) Potassium Level 4.2 mmol/L (3.5-5.1) Chloride Level 92 mmol/L (98-107) Carbon Dioxide Level 24 mmol/L (21-32) Anion Gap 12 (6-14) Blood Urea Nitrogen 18 mg/dL (8-26) Creatinine 0.7 mg/dL (0.7-1.3) Estimated GFR (Cockcroft-Gault) 115.8 BUN/Creatinine Ratio 26 (6-20) Glucose Level 308 mg/dL (70-99) Calcium Level 9.2 mg/dL (8.5-10.1) Total Bilirubin 1.6 mg/dL (0.2-1.0) Aspartate Amino Transf (AST/SGOT) 34 U/L (15-37) Alanine Aminotransferase (ALT/SGPT) 46 U/L (16-63) Alkaline Phosphatase 167 U/L (46-116) Total Protein 7.8 g/dL (6.4-8.2) Albumin 3.3 g/dL (3.4-5.0) Albumin/Globulin Ratio 0.7 (1.0-1.7) Lipase 114 U/L (73-393) Urine Collection Type U cath Urine Color Yellow Urine Clarity Clear Urine pH 6.0 Urine Specific [place] >=1.030 Urine Protein Negative mg/dL (NEG-TRACE) Urine Glucose (UA) >=1000 mg/dL (NEG) Urine Ketones (Stick) 15 mg/dL (NEG) Urine Blood Negative (NEG) Urine Nitrite Negative (NEG) Urine Bilirubin Negative (NEG) Urine Urobilinogen Dipstick 1.0 mg/dL (0.2 mg/dL) Urine Leukocyte Esterase Negative (NEG) Urine RBC Occ /HPF (0-2) Urine WBC Occ /HPF (0-4) Urine Squamous Epithelial Cells Occ /LPF Urine Transitional Epithelial Cells Occ /LPF Urine Bacteria 0 /HPF (0-FEW) Urine Mucus Slight /LPF Lactic Acid Level 1.7 mmol/L (0.4-2.0) Glucose (Fingerstick) 212 mg/dL (70-99) Test 10/25/18 07:49 10/25/18 10:10 10/25/18 11:20 10/25/18 16:57 Glucose (Fingerstick) 205 mg/dL (70-99) 224 mg/dL (70-99) 266 mg/dL (70-99) Hemoglobin A1c 12.4 % (4.8-5.6) Test 10/25/18 22:22 10/26/18 04:15 Glucose (Fingerstick) 223 mg/dL (70-99) White Blood Count 9.7 x10^3/uL (4.0-11.0) Red Blood Count 4.43 x10^6/uL (4.30-5.70) Hemoglobin 13.4 g/dL (13.0-17.5) Hematocrit 40.5 % (39.0-53.0) Mean Corpuscular Volume 92 fL (79-100) Mean Corpuscular Hemoglobin 30 pg (25-35) Mean Corpuscular Hemoglobin Concent 33 g/dL (31-37) Red Cell Distribution Width 13.4 % (11.5-14.5) Platelet Count 231 x10^3/uL (140-400) Neutrophils (%) (Auto) 80 % (31-73) Lymphocytes (%) (Auto) 10 % (24-48) Monocytes (%) (Auto) 9 % (0-9) Eosinophils (%) (Auto) 0 % (0-3) Basophils (%) (Auto) 0 % (0-3) Neutrophils # (Auto) 7.8 x10^3uL (1.8-7.7) Lymphocytes # (Auto) 1.0 x10^3/uL (1.0-4.8) Monocytes # (Auto) 0.9 x10^3/uL (0.0-1.1) Eosinophils # (Auto) 0.0 x10^3/uL (0.0-0.7) Basophils # (Auto) 0.0 x10^3/uL (0.0-0.2) Sodium Level 134 mmol/L (136-145) Potassium Level 3.9 mmol/L (3.5-5.1) Chloride Level 97 mmol/L (98-107) Carbon Dioxide Level 26 mmol/L (21-32) Anion Gap 11 (6-14) Blood Urea Nitrogen 6 mg/dL (8-26) Creatinine 0.6 mg/dL (0.7-1.3) Estimated GFR (Cockcroft-Gault) 138.4 BUN/Creatinine Ratio 10 (6-20) Glucose Level 220 mg/dL (70-99) Calcium Level 8.6 mg/dL (8.5-10.1) Total Bilirubin 1.4 mg/dL (0.2-1.0) Aspartate Amino Transf (AST/SGOT) 38 U/L (15-37) Alanine Aminotransferase (ALT/SGPT) 46 U/L (16-63) Alkaline Phosphatase 326 U/L (46-116) Total Protein 6.7 g/dL (6.4-8.2) Albumin 2.6 g/dL (3.4-5.0) Albumin/Globulin Ratio 0.6 (1.0-1.7) Laboratory Tests Test 10/25/18 10:10 10/25/18 11:20 10/25/18 16:57 10/25/18 22:22 Hemoglobin A1c 12.4 % (4.8-5.6) Glucose (Fingerstick) 224 mg/dL (70-99) 266 mg/dL (70-99) 223 mg/dL (70-99) Test 10/26/18 04:15 White Blood Count 9.7 x10^3/uL (4.0-11.0) Red Blood Count 4.43 x10^6/uL (4.30-5.70) Hemoglobin 13.4 g/dL (13.0-17.5) Hematocrit 40.5 % (39.0-53.0) Mean Corpuscular Volume 92 fL (79-100) Mean Corpuscular Hemoglobin 30 pg (25-35) Mean Corpuscular Hemoglobin Concent 33 g/dL (31-37) Red Cell Distribution Width 13.4 % (11.5-14.5) Platelet Count 231 x10^3/uL (140-400) Neutrophils (%) (Auto) 80 % (31-73) Lymphocytes (%) (Auto) 10 % (24-48) Monocytes (%) (Auto) 9 % (0-9) Eosinophils (%) (Auto) 0 % (0-3) Basophils (%) (Auto) 0 % (0-3) Neutrophils # (Auto) 7.8 x10^3uL (1.8-7.7) Lymphocytes # (Auto) 1.0 x10^3/uL (1.0-4.8) Monocytes # (Auto) 0.9 x10^3/uL (0.0-1.1) Eosinophils # (Auto) 0.0 x10^3/uL (0.0-0.7) Basophils # (Auto) 0.0 x10^3/uL (0.0-0.2) Sodium Level 134 mmol/L (136-145) Potassium Level 3.9 mmol/L (3.5-5.1) Chloride Level 97 mmol/L (98-107) Carbon Dioxide Level 26 mmol/L (21-32) Anion Gap 11 (6-14) Blood Urea Nitrogen 6 mg/dL (8-26) Creatinine 0.6 mg/dL (0.7-1.3) Estimated GFR (Cockcroft-Gault) 138.4 BUN/Creatinine Ratio 10 (6-20) Glucose Level 220 mg/dL (70-99) Calcium Level 8.6 mg/dL (8.5-10.1) Total Bilirubin 1.4 mg/dL (0.2-1.0) Aspartate Amino Transf (AST/SGOT) 38 U/L (15-37) Alanine Aminotransferase (ALT/SGPT) 46 U/L (16-63) Alkaline Phosphatase 326 U/L (46-116) Total Protein 6.7 g/dL (6.4-8.2) Albumin 2.6 g/dL (3.4-5.0) Albumin/Globulin Ratio 0.6 (1.0-1.7) Problem List Problems Medical Problems: (1) Cholelithiasis Status: Acute (2) Jaundice Status: Acute KEITH MOSLEY APRN October 26, 2018 08:39
[2018-10-26] MEDS: HYDROCORTISONE ACETATE 25 MG SUPP.RECT PR SCH (09:00)
[2018-10-26 09:30] VITALS: BP 149/82
[2018-10-26 09:45] VITALS: BP 150/84
[2018-10-26 10:00] VITALS: BP 138/74
[2018-10-26] MEDS: ACETAMINOPHEN/CODEINE 300/30MG TABLET. PO PRN (10:14)
[2018-10-26] MEDS: LACTOBACILLUS RHAMNOSUS GG 1 CAPSULE. PO SCH (10:14)
[2018-10-26 10:15] VITALS: BP 147/85
[2018-10-26] MEDS: CIPROFLOXACIN 400MG PREMIX 200 ML IV SCH (10:16)
[2018-10-26] MEDS: INSULIN LISPRO 300 UNITS/3 ML INSULN.PEN. SQ SCH ×2 (10:22→12:31)
[2018-10-26] MEDS ORDERED: ACET1TAB33 PO (11:37)
[2018-10-26] MEDS ORDERED: METR500T PO (11:37)
[2018-10-26] MEDS ORDERED: LACT1CAP19 PO (11:37)
[2018-10-26] MEDS ORDERED: HYDR26CR TP (11:37)
[2018-10-26] MEDS ORDERED: CIPR500T94 PO (11:37)
[2018-10-26] MEDS ORDERED: SENN-161 PO (11:40)
[2018-10-26] MEDS ORDERED: LISI2.5T PO (11:48)
[2018-10-26] MEDS ORDERED: METF500T9 PO (11:48)
[2018-10-26] MEDS ORDERED: INSULIN LISPRO 300 UNITS/3 ML INSULN.PEN. SQ SCH (12:00)
--- NOTE | 2018-10-26 13:45 | NUR ---
Discharge Note: Patient was discharged home with self care. Patients and daughter at the bedside at the time of discharge education. Patients IV was discontinued without any complications by NEWS CLERK. Patient and family was given discharge summary/instructions, follow-up, prescriptions and educational material. Patient was thoroughly explained discharge instructions in patients primary language, Kosovan. Questions and concerns were answered and addressed. Patient was taken down to the main entrance via wheelchair with all personal belongings, where his family was waiting for him to take him home.
--- NOTE | 2018-10-26 14:44 | PDOC3 ---
Discharge Summary Visit Information Date of Admission: October 25, 2018 Date of Discharge: October 26, 2018 Admitting Diagnosis: rectal pain, Final Diagnosis acute REctal pain with hemorrhoids colitis, infectious, Hyponatremia could be pseudohyponatremia ? NIDDM to poorly controlled Dm2, not compliant Ketonuria Problems Medical Problems: (1) Cholelithiasis Status: Acute (2) Jaundice Status: Acute Brief Hospital Course Allergies Allergies Coded Allergies Type Severity Reaction Last Updated Verified No Known Drug Allergies 10/24/18 No Vital Signs Vital Signs Date Time Temp Pulse Resp B/P (MAP) Pulse Ox O2 Delivery O2 Flow Rate FiO2 10/26/18 12:00 Room Air 10/26/18 10:15 96 147/85 (105) 96 10/26/18 10:14 2.0 10/26/18 08:39 99.0 18 99.0 Lab Results Laboratory Tests Test 10/24/18 22:50 10/25/18 00:20 10/25/18 01:05 10/25/18 01:26 White Blood Count 10.2 x10^3/uL (4.0-11.0) Red Blood Count 4.87 x10^6/uL (4.30-5.70) Hemoglobin 14.9 g/dL (13.0-17.5) Hematocrit 44.3 % (39.0-53.0) Mean Corpuscular Volume 91 fL (79-100) Mean Corpuscular Hemoglobin 31 pg (25-35) Mean Corpuscular Hemoglobin Concent 34 g/dL (31-37) Red Cell Distribution Width 13.1 % (11.5-14.5) Platelet Count 231 x10^3/uL (140-400) Neutrophils (%) (Auto) 84 % (31-73) Lymphocytes (%) (Auto) 8 % (24-48) Monocytes (%) (Auto) 8 % (0-9) Eosinophils (%) (Auto) 0 % (0-3) Basophils (%) (Auto) 0 % (0-3) Neutrophils # (Auto) 8.5 x10^3uL (1.8-7.7) Lymphocytes # (Auto) 0.8 x10^3/uL (1.0-4.8) Monocytes # (Auto) 0.8 x10^3/uL (0.0-1.1) Eosinophils # (Auto) 0.0 x10^3/uL (0.0-0.7) Basophils # (Auto) 0.0 x10^3/uL (0.0-0.2) Sodium Level 128 mmol/L (136-145) Potassium Level 4.2 mmol/L (3.5-5.1) Chloride Level 92 mmol/L (98-107) Carbon Dioxide Level 24 mmol/L (21-32) Anion Gap 12 (6-14) Blood Urea Nitrogen 18 mg/dL (8-26) Creatinine 0.7 mg/dL (0.7-1.3) Estimated GFR (Cockcroft-Gault) 115.8 BUN/Creatinine Ratio 26 (6-20) Glucose Level 308 mg/dL (70-99) Calcium Level 9.2 mg/dL (8.5-10.1) Total Bilirubin 1.6 mg/dL (0.2-1.0) Aspartate Amino Transf (AST/SGOT) 34 U/L (15-37) Alanine Aminotransferase (ALT/SGPT) 46 U/L (16-63) Alkaline Phosphatase 167 U/L (46-116) Total Protein 7.8 g/dL (6.4-8.2) Albumin 3.3 g/dL (3.4-5.0) Albumin/Globulin Ratio 0.7 (1.0-1.7) Lipase 114 U/L (73-393) Urine Collection Type U cath Urine Color Yellow Urine Clarity Clear Urine pH 6.0 Urine Specific [place] >=1.030 Urine Protein Negative mg/dL (NEG-TRACE) Urine Glucose (UA) >=1000 mg/dL (NEG) Urine Ketones (Stick) 15 mg/dL (NEG) Urine Blood Negative (NEG) Urine Nitrite Negative (NEG) Urine Bilirubin Negative (NEG) Urine Urobilinogen Dipstick 1.0 mg/dL (0.2 mg/dL) Urine Leukocyte Esterase Negative (NEG) Urine RBC Occ /HPF (0-2) Urine WBC Occ /HPF (0-4) Urine Squamous Epithelial Cells Occ /LPF Urine Transitional Epithelial Cells Occ /LPF Urine Bacteria 0 /HPF (0-FEW) Urine Mucus Slight /LPF Lactic Acid Level 1.7 mmol/L (0.4-2.0) Glucose (Fingerstick) 212 mg/dL (70-99) Test 10/25/18 07:49 10/25/18 10:10 10/25/18 11:20 10/25/18 16:57 Glucose (Fingerstick) 205 mg/dL (70-99) 224 mg/dL (70-99) 266 mg/dL (70-99) Hemoglobin A1c 12.4 % (4.8-5.6) Test 10/25/18 22:22 10/26/18 04:15 10/26/18 09:24 10/26/18 11:43 Glucose (Fingerstick) 223 mg/dL (70-99) 170 mg/dL (70-99) 247 mg/dL (70-99) White Blood Count 9.7 x10^3/uL (4.0-11.0) Red Blood Count 4.43 x10^6/uL (4.30-5.70) Hemoglobin 13.4 g/dL (13.0-17.5) Hematocrit 40.5 % (39.0-53.0) Mean Corpuscular Volume 92 fL (79-100) Mean Corpuscular Hemoglobin 30 pg (25-35) Mean Corpuscular Hemoglobin Concent 33 g/dL (31-37) Red Cell Distribution Width 13.4 % (11.5-14.5) Platelet Count 231 x10^3/uL (140-400) Neutrophils (%) (Auto) 80 % (31-73) Lymphocytes (%) (Auto) 10 % (24-48) Monocytes (%) (Auto) 9 % (0-9) Eosinophils (%) (Auto) 0 % (0-3) Basophils (%) (Auto) 0 % (0-3) Neutrophils # (Auto) 7.8 x10^3uL (1.8-7.7) Lymphocytes # (Auto) 1.0 x10^3/uL (1.0-4.8) Monocytes # (Auto) 0.9 x10^3/uL (0.0-1.1) Eosinophils # (Auto) 0.0 x10^3/uL (0.0-0.7) Basophils # (Auto) 0.0 x10^3/uL (0.0-0.2) Sodium Level 134 mmol/L (136-145) Potassium Level 3.9 mmol/L (3.5-5.1) Chloride Level 97 mmol/L (98-107) Carbon Dioxide Level 26 mmol/L (21-32) Anion Gap 11 (6-14) Blood Urea Nitrogen 6 mg/dL (8-26) Creatinine 0.6 mg/dL (0.7-1.3) Estimated GFR (Cockcroft-Gault) 138.4 BUN/Creatinine Ratio 10 (6-20) Glucose Level 220 mg/dL (70-99) Calcium Level 8.6 mg/dL (8.5-10.1) Total Bilirubin 1.4 mg/dL (0.2-1.0) Aspartate Amino Transf (AST/SGOT) 38 U/L (15-37) Alanine Aminotransferase (ALT/SGPT) 46 U/L (16-63) Alkaline Phosphatase 326 U/L (46-116) Total Protein 6.7 g/dL (6.4-8.2) Albumin 2.6 g/dL (3.4-5.0) Albumin/Globulin Ratio 0.6 (1.0-1.7) Laboratory Tests Test 10/25/18 16:57 10/25/18 22:22 10/26/18 04:15 10/26/18 09:24 Glucose (Fingerstick) 266 mg/dL (70-99) 223 mg/dL (70-99) 170 mg/dL (70-99) White Blood Count 9.7 x10^3/uL (4.0-11.0) Red Blood Count 4.43 x10^6/uL (4.30-5.70) Hemoglobin 13.4 g/dL (13.0-17.5) Hematocrit 40.5 % (39.0-53.0) Mean Corpuscular Volume 92 fL (79-100) Mean Corpuscular Hemoglobin 30 pg (25-35) Mean Corpuscular Hemoglobin Concent 33 g/dL (31-37) Red Cell Distribution Width 13.4 % (11.5-14.5) Platelet Count 231 x10^3/uL (140-400) Neutrophils (%) (Auto) 80 % (31-73) Lymphocytes (%) (Auto) 10 % (24-48) Monocytes (%) (Auto) 9 % (0-9) Eosinophils (%) (Auto) 0 % (0-3) Basophils (%) (Auto) 0 % (0-3) Neutrophils # (Auto) 7.8 x10^3uL (1.8-7.7) Lymphocytes # (Auto) 1.0 x10^3/uL (1.0-4.8) Monocytes # (Auto) 0.9 x10^3/uL (0.0-1.1) Eosinophils # (Auto) 0.0 x10^3/uL (0.0-0.7) Basophils # (Auto) 0.0 x10^3/uL (0.0-0.2) Sodium Level 134 mmol/L (136-145) Potassium Level 3.9 mmol/L (3.5-5.1) Chloride Level 97 mmol/L (98-107) Carbon Dioxide Level 26 mmol/L (21-32) Anion Gap 11 (6-14) Blood Urea Nitrogen 6 mg/dL (8-26) Creatinine 0.6 mg/dL (0.7-1.3) Estimated GFR (Cockcroft-Gault) 138.4 BUN/Creatinine Ratio 10 (6-20) Glucose Level 220 mg/dL (70-99) Calcium Level 8.6 mg/dL (8.5-10.1) Total Bilirubin 1.4 mg/dL (0.2-1.0) Aspartate Amino Transf (AST/SGOT) 38 U/L (15-37) Alanine Aminotransferase (ALT/SGPT) 46 U/L (16-63) Alkaline Phosphatase 326 U/L (46-116) Total Protein 6.7 g/dL (6.4-8.2) Albumin 2.6 g/dL (3.4-5.0) Albumin/Globulin Ratio 0.6 (1.0-1.7) Test 10/26/18 11:43 Glucose (Fingerstick) 247 mg/dL (70-99) Brief Hospital Course Mr. Guillory is a 57 old male, admit with acute rectal pain, colitis, abx given scope, partial on 10/26, pt felt much better will DC home Discharge Information Condition at Discharge: Improved Follow Up: Weeks Disposition/Orders: D/C to Home Scheduled Ciprofloxacin Hcl (Cipro) 500 Mg Tablet, 1 TAB PO BID for colon infection, #14 Prescribed by: VIV AKBAR on 10/26/18 1787 Lactobacillus Rhamnosus Gg (Culturelle) 1 Each Cap.sprink, 1 CAP PO BID for colon health, #30 Prescribed by: VIV AKBAR on 10/26/18 1137 Lisinopril (Lisinopril) 2.5 Mg Tablet, 1 TAB PO DAILY for diabetes, #30 Ref 1 Prescribed by: VIV AKBAR on 10/26/18 1148 Metformin Hcl (Metformin Hcl) 500 Mg Tablet, 500 MG PO BIDWMEALS for ANTI- DIABETIC, Ref 0 (Reported) Entered as Reported by: ALIVIA PATEL on 10/25/18821 Last Taken: Unknown Dose on 10/24/18799 Last Action: Converted on 10/25/18953 by KENNETH CERVANTES Metformin Hcl (Metformin Hcl Er) 500 Mg Tab.er.24h, 500 MG PO BIDWMEALS for diabetes, #60 Prescribed by: VIV AKBAR on 10/26/18 1148 Metronidazole (Flagyl) 500 Mg Tablet, 500 MG PO TID for infection, #20 Prescribed by: VIV AKBAR on 10/26/18 1137 [pericolace] , 2 TAB PO HS for constipation, (Reported) Entered as Reported by: ALIVIA PATEL on 10/25/18821 Last Taken: Unknown Dose on 10/23/182099 Last Action: Converted on 10/25/18953 by KENNETH CERVANTES Scheduled PRN Acetaminophen With Codeine (Acetaminophen-Cod #3 Tablet) 1 Each Tablet, 1 TAB PO PRN Q6HRS PRN for SEVERE PAIN, #25 Prescribed by: VIV AKBAR on 10/26/18 1137 Hydrocortisone (Preparation H) 26 Gm Cream..g., 26 GM TP Q4HRS PRN for PAIN, #1 Prescribed by: VIV AKBAR on 10/26/18 1137 Sennosides/Docusate Sodium (Senna-Docusate Sodium Tablet) 1 Each Tablet, 1 EACH PO BID PRN for CONSTIPATION, #60 Prescribed by: VIV AKBAR on 10/26/18 1140 Discontinued Medications Amoxicillin/Potassium Clav (Augmentin 875-125 Tablet) 1 Each Tablet, 1 TAB PO BID for infection, #14 (Reported) Entered as Reported by: ALIVIA PATEL on 10/25/18821 Last Taken: Unknown Dose on 10/24/18799 Last Action: HELD on 10/25/18953 by KENNETH CERVANTES Hydrocortisone Acetate (Anusol-Hc) 25 Mg Supp.rect, 1 SUPP RC BID for painful hemmhoroids, #14 (Reported) Entered as Reported by: ALIVIA PATEL on 10/25/18821 Last Taken: Unknown Dose on 10/24/18 1400 Last Action: Converted on 10/25 by KENNETH CERVANTES Lidocaine (Recticare) 30 Gm Cream..g., 1 EVANGELIST TOP QIDPRN PRN for rectal pain, (Reported) Entered as Reported by: ALIVIA PATEL on 10/25/18821 Last Taken: Unknown Dose on 10/24/18799 Last Action: Converted on 10/25/18953 by KENNETH CERVANTES Tramadol Hcl (Tramadol Hcl) 50 Mg Tablet, 50 MG PO PRN Q12HR PRN for PAIN, (Reported) Entered as Reported by: ALIVIA PATEL on 10/25/18821 Last Taken: Unknown Dose on 10/24/18799 Last Action: Continued on 10/25/18953 by KENNETH CERVANTES Patient Instructions Patient Instructions needs restablish primary care, Dm2 care > 30 min face to face, VIV AKBAR MD October 26, 2018 14:44
[2018-10-27] MEDS ORDERED: metFORMIN 500 MG TABLET PO SCH (08:00)
== END 2018-10-26 13:45 | disposition home or self-care (01) | DRG 394 ==
LOC: ER 10-25 00:19 → 5 NORTH 10-25 00:42
PROVIDERS: ADMIT Internal Medicine; ATTEND Internal Medicine
PROC: 0DJD8ZZ Inspection of Lower Intestinal Tract, Via Natural or Artificial Opening Endoscopic (ICD-10-PCS; principal; 2018-10-26 07:30)
DX: K64.8 Other hemorrhoids (principal); A09 Infectious gastroenteritis and colitis, unspecified; E87.1 Hypo-osmolality and hyponatremia; K80.20 Calculus of gallbladder without cholecystitis without obstruction; K82.8 Other specified diseases of gallbladder; E11.65 Type 2 diabetes mellitus with hyperglycemia; R82.4 Acetonuria; Z79.84 Long term (current) use of oral hypoglycemic drugs
CPT/HCPCS: 36415; 45378; 74177; 80053; 81001; 82962; 83036; 83605; 83690; 85025; 87040; 96361; 96374; 96375; J0744; J1815; J1885; J2001; J2270; J2704; J3490; J7030; J7120; Q9967; 99285-25

== ENCOUNTER 2018-10-29 02:04 | Emergency (ER) | payer BC ==
[~2018-10-29] VITALS: Ht 179.1 cm; Wt 77.1 kg
[~2018-10-29 02:04] MED LIST: ACET1TAB33 PO; AMOX1TAB61 PO; CIPR500T94 PO; HYDR25SU18 RC; HYDR26CR TP; LACT1CAP19 PO; LIDO30CR6 TOP; LISI2.5T PO; METF500T16 PO; METF500T9 PO; METR500T PO; SENN-161 PO; TRAM50TA PO; pericolace PO
[2018-10-29] MEDS ORDERED: MORPHINE SULFATE 4 MG/ML VIAL. IV ONE (02:45)
[2018-10-29] MEDS ORDERED: IV NORMAL SALINE 1000ML BAG 1,000 ML IV ONE (02:45)
[2018-10-29] MEDS ORDERED: ONDANSETRON PF 4 MG/2 ML VIAL. IV ONE (02:45)
--- NOTE | 2018-10-29 02:52 | PHYS DOC ---
Past Medical History Past Medical History: Diabetes-Type II Past Surgical History: Other Additional Past Surgical Histo: KIDNEY STONE REMOVAL Alcohol Use: Occasionally Drug Use: None Adult General Chief Complaint Chief Complaint: RECTAL BLEED HPI HPI Patient is a 57 year old M who presents with rectal pain. He was here and then admitted for a similar complaint last week. He states that earlier today he went to have a BM after which there was a lot of blood. He denies any abdominal pain. He was given Cipro and Flagyl during his last hospitalization which he states he has been taking as prescribed. Review of Systems Review of Systems Constitutional: Denies fever or chills [] Eyes: Denies change in visual acuity, redness, or eye pain [] HENT: Denies nasal congestion or sore throat [] Respiratory: Denies cough or shortness of breath [] Cardiovascular: No additional information not addressed in HPI [] GI: Reports rectal pain and hematochezia [] : Denies dysuria or hematuria [] Musculoskeletal: Denies back pain or joint pain [] Integument: Denies rash or skin lesions [] Neurologic: Denies headache, focal weakness or sensory changes [] Endocrine: Denies polyuria or polydipsia [] All other systems were reviewed and found to be within normal limits, except as documented in this note. Current Medications Current Medications Current Medications Medications (Trade) Dose Ordered Sig/Do Start Time Stop Time Status Last Admin Dose Admin Info (CONTRAST GIVEN -- Rx MONITORING) 1 each PRN DAILY PRN 10/29/18 04:45 10/31/18 04:44 Iohexol (Omnipaque 300 Mg/ml) 75 ml 1X ONCE 10/29/18 04:30 10/29/18 04:31 DC 10/29/18 04:46 75 ML Morphine Sulfate (Morphine Sulfate) 4 mg 1X ONCE 10/29/18 02:45 10/29/18 02:46 DC 10/29/18 02:50 4 MG Ondansetron HCl (Zofran) 4 mg 1X ONCE 10/29/18 02:45 10/29/18 02:46 DC 10/29/18 02:50 4 MG Sodium Chloride 1,000 ml @ 1,000 mls/hr 1X ONCE 10/29/18 02:45 10/29/18 03:44 DC 10/29/18 02:49 1,000 MLS/HR Allergies Allergies Allergies Coded Allergies Type Severity Reaction Last Updated Verified No Known Drug Allergies 10/24/18 No Physical Exam Physical Exam Constitutional: Well developed, well nourished, no acute distress, non-toxic appearance. [] HENT: Normocephalic, atraumatic, bilateral external ears normal, oropharynx moist, no oral exudates, nose normal. [] Eyes: PERRLA, EOMI, conjunctiva normal, no discharge. [] Neck: Normal range of motion, no tenderness, supple, no stridor. [] Cardiovascular:Heart rate regular rhythm, no murmur [] Lungs & Thorax: Bilateral breath sounds clear to auscultation [] Abdomen: Bowel sounds normal, soft, no tenderness, no masses, no pulsatile masses. [] Skin: Warm, dry, no erythema, no rash. [] Back: No tenderness, no CVA tenderness. [] Extremities: No tenderness, no cyanosis, no clubbing, ROM intact, no edema. [] Neurologic: Alert and oriented X 3, normal motor function, normal sensory function, no focal deficits noted. [] Psychologic: Affect normal, judgement normal, mood normal Genital: Lilibeth-anal erythema and induration at the 2 o'clock position. Visible hemorrhoid. No obvious bleeding [] Current Patient Data Vital Signs Vital Signs Date Time Temp Pulse Resp B/P (MAP) Pulse Ox O2 Delivery O2 Flow Rate FiO2 10/29/18 03:10 98.6 85 20 131/68 (89) 100 Room Air 98.6 Lab Values Laboratory Tests Test 10/29/18 02:45 10/29/18 03:40 10/29/18 03:50 White Blood Count 9.8 x10^3/uL (4.0-11.0) Red Blood Count 4.43 x10^6/uL (4.30-5.70) Hemoglobin 13.5 g/dL (13.0-17.5) Hematocrit 40.1 % (39.0-53.0) Mean Corpuscular Volume 91 fL (79-100) Mean Corpuscular Hemoglobin 31 pg (25-35) Mean Corpuscular Hemoglobin Concent 34 g/dL (31-37) Red Cell Distribution Width 13.4 % (11.5-14.5) Platelet Count 325 x10^3/uL (140-400) Neutrophils (%) (Auto) 83 % (31-73) H Lymphocytes (%) (Auto) 10 % (24-48) L Monocytes (%) (Auto) 7 % (0-9) Eosinophils (%) (Auto) 0 % (0-3) Basophils (%) (Auto) 0 % (0-3) Neutrophils # (Auto) 8.1 x10^3uL (1.8-7.7) H Lymphocytes # (Auto) 0.9 x10^3/uL (1.0-4.8) L Monocytes # (Auto) 0.7 x10^3/uL (0.0-1.1) Eosinophils # (Auto) 0.0 x10^3/uL (0.0-0.7) Basophils # (Auto) 0.0 x10^3/uL (0.0-0.2) Prothrombin Time 16.4 SEC (11.7-14.0) H Prothrombin Time INR 1.4 (0.8-1.1) H Urine Collection Type Unknown Urine Color Yellow Urine Clarity Clear Urine pH 6.5 Urine Specific [place] 1.020 Urine Protein Negative mg/dL (NEG-TRACE) Urine Glucose (UA) >=1000 mg/dL (NEG) Urine Ketones (Stick) 40 mg/dL (NEG) Urine Blood Negative (NEG) Urine Nitrite Negative (NEG) Urine Bilirubin Negative (NEG) Urine Urobilinogen Dipstick 1.0 mg/dL (0.2 mg/dL) Urine Leukocyte Esterase Negative (NEG) Urine RBC Occ /HPF (0-2) Urine WBC Occ /HPF (0-4) Urine Squamous Epithelial Cells Occ /LPF Urine Bacteria 0 /HPF (0-FEW) Urine Hyaline Casts Occasional /HPF Urine Mucus Slight /LPF Sodium Level 135 mmol/L (136-145) L Potassium Level 3.7 mmol/L (3.5-5.1) Chloride Level 98 mmol/L (98-107) Carbon Dioxide Level 23 mmol/L (21-32) Anion Gap 14 (6-14) Blood Urea Nitrogen 8 mg/dL (8-26) Creatinine 0.5 mg/dL (0.7-1.3) L Estimated GFR (Cockcroft-Gault) 170.8 BUN/Creatinine Ratio 16 (6-20) Glucose Level 277 mg/dL (70-99) H Calcium Level 8.0 mg/dL (8.5-10.1) L Total Bilirubin 0.8 mg/dL (0.2-1.0) Aspartate Amino Transferase (AST) 20 U/L (15-37) Alanine Aminotransferase (ALT) 29 U/L (16-63) Alkaline Phosphatase 282 U/L (46-116) H Total Protein 5.7 g/dL (6.4-8.2) L Albumin 2.5 g/dL (3.4-5.0) L Albumin/Globulin Ratio 0.8 (1.0-1.7) L Laboratory Tests 10/29/18 02:45 Laboratory Tests 10/29/18 03:50 EKG EKG [] Radiology/Procedures Radiology/Procedures [] Impressions: egenerative endplate spurring of the thoracolumbar spine. IMPRESSION: 1. There is unchanged moderate rectal wall thickening and perirectal fat induration. Considerations include proctitis or anorectal malignancy. 2. Moderate bilateral lower lobe atelectasis, progressed from prior study. 3. Hydropic gallbladder and cholelithiasis. 4. Moderate colon stool volume suggests constipation. 5. Prostate mildly enlarged. Electronically signed by: Christos Daley MD (10/29/2018 5:20 AM) [facility] Course & Med Decision Making Course & Med Decision Making Pertinent Labs and Imaging studies reviewed. (See chart for details) []57-year-old male who is presenting with rectal pain he has a history of hemorrhoids he has some colitis noted on recent CT scan today CT scan is unchanged she had some rectal pain while having a bowel movement ultimately giving this is just hemorrhoidal pain I gave him lactulose his labs look stable he felt much better in the emergency room return precautions discussed recommended continued outpatient follow-up Dragon Disclaimer Dragon Disclaimer This electronic medical record was generated, in whole or in part, using a voice recognition dictation system. Departure Departure Impression: Primary Impression: Colitis Additional Impression: Hemorrhoids Disposition: HOME, SELF-CARE Condition: STABLE Referrals: NO PCP (PCP) Scripts Lactulose (LACTULOSE) 20 Gm/30 Ml Solution 20 GM PO BID PRN for CONSTIPATION, #1 MISC Prov: KIMBERLY WESTFALL MD 10/29/18 Problem Qualifiers KIMBERLY WESTFALL MD October 29, 2018 02:52
[2018-10-29 02:54] LABS: BASO % 0 % (0-3); EOS % 0 % (0-3); HEMATOCRIT 40.1 % (39.0-53.0); HEMOGLOBIN 13.5 g/dL (13.0-17.5); LYMPH # 0.9 x10^3/uL (1.0-4.8); LYMPH % 10 % (24-48); MEAN CORPUSCULAR HEMOGLOBIN 31 pg (25-35); MEAN CORPUSCULAR HGB CONC 34 g/dL (31-37); MEAN CORPUSCULAR VOLUME 91 fL (79-100); MONO # 0.7 x10^3/uL (0.0-1.1); MONO % 7 % (0-9); NEUT # 8.1 x10^3uL (1.8-7.7); NEUT % 83 % (31-73); PLATELET COUNT 325 x10^3/uL (140-400); RED BLOOD COUNT 4.43 x10^6/uL (4.30-5.70); RED CELL DISTRIBUTION WIDTH 13.4 % (11.5-14.5); WHITE BLOOD COUNT 9.8 x10^3/uL (4.0-11.0)
[2018-10-29 03:02] LABS: PROTHROMBIN TIME PATIENT 16.4 SEC (11.7-14.0)
[2018-10-29 04:02] LABS: BILIRUBIN,URINE NEGATIVE (NEG); CLARITY,URINE CLEAR; COLOR,URINE YELLOW; NITRITE,URINE NEGATIVE (NEG); PH,URINE 6.5; PROTEIN,URINE NEGATIVE (NEG-TRACE)
[2018-10-29 04:09] LABS: CREATININE 0.5 mg/dL (0.7-1.3); GFR 170.8; POTASSIUM 3.7 mmol/L (3.5-5.1)
[2018-10-29 04:15] LABS: BACTERIA,URINE 0 /HPF (0-FEW); HYALINE CASTS, URINE OCCASIONAL /HPF; RBC,URINE OCC /HPF (0-2); SQUAMOUS EPITHELIAL CELL,UR OCC /LPF; WBC,URINE OCC /HPF (0-4)
[2018-10-29 04:15] LABS: ALBUMIN 2.5 g/dL (3.4-5.0); ALBUMIN/GLOBULIN RATIO 0.8 (1.0-1.7); TOTAL BILIRUBIN 0.8 mg/dL (0.2-1.0); TOTAL PROTEIN 5.7 g/dL (6.4-8.2)
[2018-10-29 04:26] VITALS: BP 125/75
[2018-10-29] MEDS ORDERED: IOHEXOL 300 MG/ML 100ML VIAL. IV ONE (04:30)
[2018-10-29] MEDS ORDERED: CONTRAST GIVEN. MC PRN (04:45)
--- NOTE | 2018-10-29 05:23 | RAD ---
PQRS Compliance Statement: One or more of the following individualized dose reduction techniques were utilized for this examination: 1. Automated exposure control 2. Adjustment of the mA and/or kV according to patient size 3. Use of iterative reconstruction technique CT ABD PELV W/ IV CONTRST ONLY Clinical Indication: Rectal pain. Comparison: CT abdomen and pelvis with contrast, 5 days ago. Technique: Helical CT imaging of the abdomen and pelvis is performed after 75 cc of Omnipaque 300 IV contrast. Oral contrast not given. Findings: There is moderate atelectasis in the posterior lower lobes bilaterally. Mild respiratory motion artifact. Cardiac size normal. Hydropic gallbladder. Cholelithiasis. No gallbladder wall thickening is seen. Common bile duct is mildly dilated but tapers distally. Liver is homogeneous. Spleen, pancreas, and adrenal glands are normal. Mild atherosclerotic calcification of the abdominal aorta and iliac arteries, no aneurysm. Kidneys enhance symmetrically, no hydronephrosis. Stomach not well distended accentuating wall thickness. No dilated small bowel. Similar to prior study, there is moderate rectal wall thickening with perirectal fat induration. There is moderate colonic stool volume. The appendix is not seen, no secondary signs of appendicitis. The urinary bladder is normal. Prostate mildly enlarged. No pelvic free fluid is seen. Degenerative endplate spurring of the thoracolumbar spine. IMPRESSION: 1. There is unchanged moderate rectal wall thickening and perirectal fat induration. Considerations include proctitis or anorectal malignancy. 2. Moderate bilateral lower lobe atelectasis, progressed from prior study. 3. Hydropic gallbladder and cholelithiasis. 4. Moderate colon stool volume suggests constipation. 5. Prostate mildly enlarged. Electronically signed by: Christos Daley MD (10/29/2018 5:20 AM) [facility]
[2018-10-29] MEDS ORDERED: LACT20SO PO (05:55)
== END 2018-10-29 07:00 | disposition home or self-care (01) ==
LOC: ER 02:04
DX: K52.89 Other specified noninfective gastroenteritis and colitis (principal); K64.9 Unspecified hemorrhoids; E11.9 Type 2 diabetes mellitus without complications
CPT/HCPCS: 36415; 74177; 80053; 81001; 85025; 85610; 96361; 96374; 96375; 99285; J2270; J2405; J7030; Q9967

== ENCOUNTER 2018-11-02 18:55 | Emergency (ER) | payer BC ==
[~2018-11-02] VITALS: Ht 177.8 cm; Wt 77.1 kg
[~2018-11-02 18:55] MED LIST changes: +LACT20SO PO
[2018-11-02 19:44] VITALS: BP 125/75
[2018-11-02] MEDS ORDERED: HYDROcodone/APAP 7.5/325MG 1 TAB TABLET PO ONE (19:45)
[2018-11-02] MEDS ORDERED: METF500T9 PO (20:27)
[2018-11-02] MEDS ORDERED: CIPR500T94 PO (20:27)
[2018-11-02] MEDS ORDERED: HYDR-3164 PO (20:27)
[2018-11-02] MEDS ORDERED: METR250T PO (20:27)
--- NOTE | 2018-11-02 20:28 | PHYS DOC ---
Past Medical History Past Medical History: Diabetes-Type II Past Surgical History: Other Additional Past Surgical Histo: KIDNEY STONE REMOVAL Alcohol Use: Occasionally Drug Use: None Adult General Chief Complaint Chief Complaint: HEMORRHOIDS HPI HPI Patient is a 57 year old M who presents to ER for medication refill. Pt is primarily Kyr[place]z speaking and his family in room is translating. He declined manager business planning phone. Pt states he has been seen twice prior, including an admission for rectal pain. He has undergone colonoscopy and was dx with hemorrhoids and constipation and placed on medicine to help with symptoms. He is back because he thinks he needs more antibiotics since his rectal pain is still persisting. He states it is improving but not gone. Review of Systems Review of Systems Constitutional: Denies fever or chills Respiratory: Denies cough or shortness of breath Cardiovascular: Denies chest pain. GI: Denies abdominal pain, nausea, vomiting, bloody stools or diarrhea. Reports rectal pain. : Denies dysuria or hematuria Musculoskeletal: Denies back pain or joint pain Integument: Denies rash or skin lesions Neurologic: Denies headache, focal weakness or sensory changes Endocrine: Denies polyuria or polydipsia All other systems were reviewed and found to be within normal limits, except as documented in this note. Current Medications Current Medications Current Medications Medications (Trade) Dose Ordered Sig/Do Start Time Stop Time Status Last Admin Dose Admin Acetaminophen/ Hydrocodone Bitart (Lortab 7.5/325) 1 tab 1X ONCE 11/02/18 19:45 11/02/18 19:46 DC 11/02/18 19:57 1 TAB Ciprofloxacin (Cipro) 500 mg 1X ONCE 11/02/18 20:30 11/02/18 20:31 DC 11/02/18 20:30 500 MG Metronidazole (Flagyl) 500 mg 1X ONCE 11/02/18 20:30 11/02/18 20:31 DC 11/02/18 20:30 500 MG Allergies Allergies Allergies Coded Allergies Type Severity Reaction Last Updated Verified No Known Drug Allergies 10/24/18 No Physical Exam Physical Exam Constitutional: Well developed, well nourished, no acute distress, non-toxic appearance. Neck: Normal range of motion, no tenderness, supple, no stridor. Cardiovascular:Heart rate regular rhythm, no murmur Lungs & Thorax: Bilateral breath sounds clear to auscultation Abdomen: Bowel sounds normal, soft, no tenderness, no masses, no pulsatile masses. Skin: Warm, dry, no erythema, no rash. See Rectal Exam Back: No tenderness, no CVA tenderness. Extremities: No tenderness, no cyanosis, no clubbing, ROM intact, no edema. Neurologic: Alert and oriented X 3, normal motor function, normal sensory function, no focal deficits noted. Psychologic: Affect normal, judgement normal, mood normal. Rectal Exam: Pt has fluctuant perirectal abscess at 9 Oclock region. The area of fluctuance does not include the anal sphincter. The fluctuant area is more on the buttock. Current Patient Data Vital Signs Vital Signs Date Time Temp Pulse Resp B/P (MAP) Pulse Ox O2 Delivery O2 Flow Rate FiO2 11/02/18 19:57 16 99 Room Air 11/02/18 19:44 98.6 88 125/75 (92) 98.6 Lab Values Microbiology 11/02/18 Aerobic Culture - Final, Complete 11/02/18 Aerobic Culture Result 1 (SHAYY) - Final, Complete 11/02/18 Aerobic Culture Result 2 (SHAYY) - Final, Complete 11/02/18 Gram Stain - Final, Complete 11/02/18 Gram Stain Result 1 (SHAYY) - Final, Complete 11/02/18 Gram Stain Result 2 (SHAYY) - Final, Complete 11/02/18 Gram Stain Result 3 (SHAYY) - Final, Complete EKG EKG [] Radiology/Procedures Radiology/Procedures [] Course & Med Decision Making Course & Med Decision Making Pertinent Labs and Imaging studies reviewed. (See chart for details) On exam today pt had abscess lanced and large amount of purulent fluid drained. Area was irrigated and packed. Culture was obtained. Pt feeling much better at time of discharge. Recommended close f/u with PCP or GI as planned. Pt to return if symptoms worsen at anytime. Dragon Disclaimer Dragon Disclaimer This electronic medical record was generated, in whole or in part, using a voice recognition dictation system. Incision and Drainage Indication: abscess Procedure: The patient was positioned appropriately. Local anesthesia was 1% lidocaine. An incision was then made over the apex of the lesion and purulent material was expressed. The drainage cavity was irrigated and packed with sterile gauze. The patient tolerated the procedure well. Complications: none. Departure Departure Impression: Primary Impression: Perirectal abscess Disposition: 01 HOME, SELF-CARE Condition: IMPROVED Referrals: NO PCP (PCP) Patient Instructions: Lilibeth-Rectal Abscess Additional Instructions: Soak area in hot soapy water 2-3 times daily. Scripts Metformin Hcl (METFORMIN HCL ER) 500 Mg Tab.er.24h 500 MG PO BIDWMEALS for 30 Days, #60 TAB Prov: LUÍS SANTILLAN 11/02/18 Hydrocodone/Apap 5-325 (NORCO 5-325 TABLET) 1 Each Tablet 1-2 TAB PO Q4-6HRS PRN for PAIN, #15 TAB Prov: LUÍS SANTILLAN 11/02/18 Metronidazole (FLAGYL) 250 Mg Tablet 1 TAB PO TID, #21 TAB Prov: LUÍS SANTILLAN 11/02/18 Ciprofloxacin Hcl (CIPRO) 500 Mg Tablet 1 TAB PO BID, #14 TAB Prov: LUÍS SANTILLAN 11/02/18 LUÍS SANTILLAN November 02, 2018 20:28
[2018-11-02] MEDS ORDERED: metroNIDAZOLE 500 MG TABLET PO ONE (20:30)
[2018-11-02] MEDS ORDERED: CIPROFLOXACIN HCL 250 MG TABLET. PO ONE (20:30)
== END 2018-11-02 20:40 | disposition home or self-care (01) ==
LOC: ER 18:55
DX: K61.1 Rectal abscess (principal); E11.9 Type 2 diabetes mellitus without complications
CPT/HCPCS: 87070; 99284